=== PATIENT | female | born 1955 | race Caucasian/White ===

== ENCOUNTER 2024-04-02 09:40 | Outpatient (AMB) | payer MEDICARE, BC, SELFPAY ==
--- NOTE | 2024-04-02 09:54 | MHC.PC.OV ---
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 Allergies No Known Allergies Allergy (Verified 04/02/24 09:54) Tobacco use date assessed: 04/02/24 Fall risk assessment: 2 + Falls in past year Last assessed Fall Risk: 04/02/24 Dental Screening Dental Screen Date: 04/02/24 Did you have a dental visit in the last 12 months?: Yes Did you have a dental problem in the last 6 months where you did not have access to dental care?: No Was dental information given to patient?: Patient has dentist HPI HPI Comments History of Present Illness Details The patient is a 68-year-old female history of anxiety arthritis asthma hyperlipidemia presenting for AWV Cardiovascular on rosuvastatin 20 mg daily daily. Blood pressures home are 120s to 130s over 80s. Intolerant amlodipine due to lower extremity edema with this medication. Lisinopril stopped due to chronic cough. Denies chest pain. She previously complained of lightheadedness and underwent stress testing which was normal Chronic cough since 06/07/2022. Had COVID around that time. Stop lisinopril. Trialed omeprazole times 14 days intermittent reflux symptoms without improvement of the cough. She had normal chest x-ray. At her last visit in September she reported there cough is worse when she 1st wakes up in the middle of the night or in the morning she says that originates in the left part of the throat. She denies mirza shortness breath, fevers, chills. She is being followed at [facility] for the possible beginning of ILD. She continues follow-up there. See ENT as well. Recent CT chest with similar finding. Musculoskeletal: Foot pain. Worked up in 2021 for midfoot pain. 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 Sees Dr HuberAjfkqfj-pvtpbrig-TOW. Depression: Remained stable on Lexapro Sees Ophthalmology and a retinal specialist Colonoscopy 10/12/2021 at [facility] Women's Mammogram 05/24/2023 Care team reviewed Medications reconciled 3/3 recall Independent ADLS HRA reviewed without any issues identified (-) fall risk ROS CONSTITUTIONAL: Denies weight loss, fever and chills. HEENT: Denies changes in vision and hearing. RESPIRATORY: Denies SOB and cough. CV: Denies palpitations and CP GI: Denies abdominal pain, nausea, vomiting and diarrhea. : Denies dysuria and urinary frequency. MSK: Denies new myalgia and joint pain. SKIN: Denies rash and pruritus. NEUROLOGICAL: Denies headache PSYCHIATRIC: Denies recent changes in mood. PHYSICAL EXAM: GENERAL: Alert and oriented x 3. NAD EYES: EOMI. Anicteric. HENT: Moist mucous membranes. No scleral icterus. No cervical lymphadenopathy. LUNGS: Clear to auscultation bilaterally. CARDIOVASCULAR: Regular rate and rhythm. No murmur. No JVD. ABDOMEN: Soft, non-tender +bs EXTREMITIES: No edema. Non-tender. SKIN: No rashes or lesions. Warm. NEUROLOGIC: No focal neurological deficits. CN II-XII grossly intact PSYCHIATRIC: Cooperative. Appropriate mood and affect [facility] Medical History H/O mammogram Severe obesity HTN (hypertension) Dizziness Chronic cough Asthma Arthritis Anxiety Surgical History S/P dilatation and curettage History of colonoscopy Family History Father Asthma HTN (hypertension) Social History Housing: House Patient Tobacco Use Status: Never used Tobacco e-Cigarette/Vaping Use: Never Used Second Hand Smoke Exposure: No service: No Current occupational status: employed and retired Cognitive needs: No Hearing needs: No Vision needs: No Questionnaire PHQ-9 Over the last 2 weeks, how often have you been bothered by any of the following problems? 1. Little interest or pleasure in doing things: not at all 2. Feeling down, depressed, or hopeless: not at all 3. Trouble falling or staying asleep, or sleeping too much: not at all 4. Feeling tired or having little energy: several days 5. Poor appetite or overeating: several days 6. Feeling bad about yourself - or that you are a failure or have let yourself or your family down: not at all 7. Trouble concentrating on things, such as reading the newspaper or watching television: not at all 8. Moving or speaking so slowly that other people could have noticed. Or the opposite - being so fidgety or restless that you have been moving around a lot more than usual: not at all 9. Thoughts that you would be better off or of hurting yourself in some way: not at all Total score: 2 Depression Screening Interpretation: Negative (neg) Depression Screening Done: Yes 46212 - PHQ-9 Billing: Yes Source: Developed by Drs. Jean-Pierre Burk, Madeline Finch, Michael Parikh and colleagues, with an educational nael from [employer]. Thrive Questionnaire Date Thrive assessed: 04/02/24 I am a: Patient What is your living situation today?: I have a steady place to live Within the past 12 months, did the food you bought not last and you didn't have the money to get more?: Never true Within the past 12 months, did you worry whether your food would run out before you got money to buy more?: Never true Do you have trouble paying for medicines?: No Do you have trouble getting transportation to medical appointments?: No Do you have trouble paying your heating and electricity bill?: No Do you have trouble taking care of your child, family member or friend?: No Do you have trouble with day-to-day activities such as bathing, preparing meals, shopping, managing finances, etc.?: No Are you currently unemployed and looking for a job?: No Are you interested in more education?: No Please select the resources that you would like help with: None Currently or been in a relationship where the following occur: No concerns reported THRIVE Score: 0 AUDIT C Alcohol Use Questionnaire (AUDIT-C) 1. How often do you have a drink containing alcohol?: 4 or more times a week 2. How many drinks containing alcohol do you have on a typical day when you are drinking?: 3 or 4 3. How often do you have six or more drinks on one occasion?: Monthly Total Score: 7 EDILMA-7 AMB Questionnaire EDILMA-7 Date EDILMA - 7 assessed: 04/02/24 Feeling nervous, anxious, or on edge: 0 = Not at all Not being able to stop or control worryin = Several days Worrying too much about different things: 1 = Several days Trouble relaxin = Not at all Being so restless that it is hard to sit still: 0 = Not at all Becoming easily annoyed or irritable: 0 = Not at all Feeling afraid as if something awful might happen: 1 = Several days Total EDILMA-7 score (0-4 normal; 5-9 mild; 10-14 moderate; 15-21 severe): 3 Source: Developed by Drs. Jean-Pierre Burk, Madeline Finch, Michael Parikh and colleagues, with an educational nael from [employer]. EDILMA-7 Assessment Billing EDILMA-7 Assessment Tool: EDILMA-7 Assessment 48862 Physical exam (Primary Care) Vital Signs: Last Vital Signs Pulse 73 04/02/24 09:57 BP 120/78 04/02/24 09:57 Pulse Ox 98 04/02/24 09:57 Oxygen Delivery Method Room Air 04/02/24 09:57 BMI result Body Mass Index 44.8 Tobacco/Smoking Status: Tobacco use Status Tobacco use date assessed 04/02/24 04/02/24 09:59 Patient Tobacco Use Status Never used Tobacco 04/02/24 09:59 e-Cigarette/Vaping Use Never Used 04/02/24 09:59 PHQ-9: PHQ-9 Score PHQ-9: Total score 2 04/02/24 10:27 Depression Screening Interpretation: Negative (neg) Thrive Assessment: Date of Thrive Assessment Date Thrive assessed 04/02/24 04/02/24 10:08 Currently or been in a relationship where the following occur: No concerns reported Coding Level of Care Code Est Pt Level 3 (88951) Diagnoses Encounter for annual wellness visit (AWV) in Medicare patient Z00.00 Anxiety F41.9 Chronic cough R05.3 Additional Codes EDILMA-7 Assessment Billing - EDILMA-7 Assessment Tool: EDILMA-7 Assessment 41110 ([id number]) Assessment & Plan Assessment & Plan (1) Encounter for annual wellness visit (AWV) in Medicare patient: Code(s): Z00.00 - Encounter for general adult medical examination without abnormal findings Category: Medical Plan: see [facility] (2) Anxiety: Code(s): F41.9 - Anxiety disorder, unspecified Category: Medical Plan: stable (3) Chronic cough: Code(s): R05.3 - Chronic cough Category: Medical Plan: stable. some interval improvement Orders: Orders Lipid Panel 04/02/24 I10 - Essential (primary) hypertension, J45.909 - Unspecified asthma, uncomplicated, F41.9 - Anxiety disorder, unspecified, R05.3 - Chronic cough, M19.90 - Unspecified osteoarthritis, unspecified site TSH reflex Free T4 04/02/24 I10 - Essential (primary) hypertension, J45.909 - Unspecified asthma, uncomplicated, F41.9 - Anxiety disorder, unspecified, R05.3 - Chronic cough, M19.90 - Unspecified osteoarthritis, unspecified site Complete Blood Count Auto Diff 04/02/24 I10 - Essential (primary) hypertension, J45.909 - Unspecified asthma, uncomplicated, F41.9 - Anxiety disorder, unspecified, R05.3 - Chronic cough, M19.90 - Unspecified osteoarthritis, unspecified site Comprehensive Met. Panel 04/02/24 I10 - Essential (primary) hypertension, J45.909 - Unspecified asthma, uncomplicated, F41.9 - Anxiety disorder, unspecified, R05.3 - Chronic cough, M19.90 - Unspecified osteoarthritis, unspecified site Hemoglobin A1c 04/02/24 I10 - Essential (primary) hypertension, J45.909 - Unspecified asthma, uncomplicated, F41.9 - Anxiety disorder, unspecified, R05.3 - Chronic cough, M19.90 - Unspecified osteoarthritis, unspecified site
[2024-04-02 09:57] VITALS: BP 120/78; PULSE 73; O2SAT 98; BMI 44.8
== END 2024-04-02 10:42 | disposition home or self-care (01) ==
PROVIDERS: PCP Internal Medicine; Visit Provider Internal Medicine
DX: Z00.00 Encounter for general adult medical examination without abnormal findings (principal); F41.9 Anxiety disorder, unspecified; R05.3 Chronic cough

== ENCOUNTER → 2024-04-02 09:40 | Outpatient (BNVA) | payer MEDICARE, BC, SELFPAY | PROVIDERS: PCP Internal Medicine; Visit Provider Internal Medicine | DX: Z00.00 Encounter for general adult medical examination without abnormal findings (principal); F41.9 Anxiety disorder, unspecified; R05.3 Chronic cough | CPT/HCPCS: 96127; 99212 ==

== ENCOUNTER 2024-04-02 10:57 | Outpatient (REF) | payer MEDICARE, BC, SELFPAY ==
[2024-04-02 14:44] LABS: MANUAL DIFF FLAG NO
[2024-04-02 14:47] LABS: Basophils Absolute Auto 0.1 X10*3/uL (0.0-0.2); Eosinophils Absolute Auto 0.2 X10*3/uL (0.0-0.4); Eosinophils Percent Auto 3.3 % (0-4); Hemoglobin 15.2 g/dl (12.0-16.0); Imm Gran Abs Auto 0.04 X10*3/uL (0.00-0.03); Imm Gran Pct Auto 0.6 % (0.0-0.4); Lymphocytes Absolute Auto 1.6 X10*3/uL (1.2-4.9); Lymphocytes Percent Auto 23.8 % (20-40); Mean Corpuscular HGB Conc 33.8 g/dl (31.0-35.0); Mean Corpuscular Hemoglobin 33.2 pg (27.0-33.0); Mean Corpuscular Volume 98.3 fL (80.0-98.0); Mean Platelet Volume 10.3 fL (9.4-12.3); Monocytes Absolute Auto 0.4 X10*3/uL (0.1-1.2); Monocytes Percent Auto 6.4 % (2-11); Neutrophils Absolute Auto 4.5 x10*3/uL (2.0-8.3); Neutrophils Percent Auto 64.9 % (45-73); Platelet Count 239 X10*3/uL (160-400); Red Blood Count 4.58 X10*6/uL (4.20-5.50); Red Cell Distribution Width 13.2 % (11.0-16.0); White Blood Count 6.9 X10*3/uL (4.8-10.8)
[2024-04-02 14:58] LABS: Estimated Average Glucose 105 mg/dL; Hemoglobin A1c % 5.3 % (<6.0); Total Hemoglobin (HGBA1C) 3871.7421 umol/L
[2024-04-02 15:15] LABS: Alanine Aminotransferase 57 U/L (0-31); Albumin Level 4.5 g/dL (3.5-5.0); Alkaline Phosphatase 83 U/L (39-117); Anion Gap 13 (12-20); Aspartate Amino Transferase 49 U/L (5-31); Bilirubin Total 0.6 mg/dL (0.0-1.0); Blood Urea Nitrogen 16 mg/dL (9-16); Calcium 9.7 mg/dL (8.4-10.2); Carbon Dioxide 30 mmol/L (22-29); Chloride 102 mmol/L (96-108); Cholesterol 166 mg/dL (<200); Estimated Glomerular Filt Rate > 60; Glucose Random 118 mg/dL (60-115); HDL Cholesterol 57 mg/dL (>40); LDL Cholesterol Calculated 80 mg/dL (<100); Potassium 4.3 mmol/L (3.3-5.1); Sodium 141 mmol/L (135-145); Total Protein 7.3 g/dL (6.5-8.0); Triglycerides 146 mg/dL (<150)
[2024-04-02 15:19] LABS: TSH reflex Free T4 1.52 uIU/mL (0.32-4.0)
== END 2024-04-02 10:58 | disposition home or self-care (01) ==
LOC: HO.WFDLDS 10:57
PROVIDERS: Visit Provider Internal Medicine
DX: Z00.00 Encounter for general adult medical examination without abnormal findings (principal); F41.9 Anxiety disorder, unspecified; R05.3 Chronic cough; I10 Essential (primary) hypertension; J45.909 Unspecified asthma, uncomplicated; M19.90 Unspecified osteoarthritis, unspecified site
CPT/HCPCS: 36415; 80053; 80061; 83036; 84443; 85025; 96127; 99212

== ENCOUNTER 2024-10-22 09:02 | Outpatient (AMB) | payer MEDICARE, BC, SELFPAY ==
--- NOTE | 2024-10-22 09:13 | MHC.PC.OV ---
Vital Signs 10/22/24 09:20 Height 5 ft 2.2 in Weight 251 lb 2 oz BMI 45.6 BP 126/82 Blood Pressure Location Rt brachial Position Sitting Pulse 69 Pulse Source Pulse Oximeter Temp 97.2 F Temp Source Temporal Artery Scan Pulse Oximetry (%) 95 Oxygen Delivery Method Room Air Intake Visit Reasons: FOLLOW UP Intake Note: Ivana presents in the office today for a follow up. Allergies house dust Allergy (Verified 10/22/24 09:16) Congestion mold Allergy (Verified 10/22/24 09:16) Congestion Tobacco use date assessed: 10/22/24 Fall risk assessment: No Falls in past year Last assessed Fall Risk: 10/22/24 Dental Screening Dental Screen Date: 10/22/24 Did you have a dental visit in the last 12 months?: Yes Did you have a dental problem in the last 6 months where you did not have access to dental care?: No Was dental information given to patient?: Patient has dentist HPI HPI Comments History of Present Illness Details The patient is a 69-year-old female history of anxiety, arthritis, asthma, hyperlipidemia presenting for follow up CV: on rosuvastatin 20 mg daily daily, chlorthalidone 12.5mg daily. Intolerant amlodipine due to lower extremity edema with this medication. Lisinopril stopped due to chronic cough. Denies chest pain. She previously complained of lightheadedness and underwent stress testing which was normal Chronic cough since 06/07/2022. This is stable. Had COVID around that time. Stop lisinopril. Trialed omeprazole times 14 days intermittent reflux symptoms without improvement of the cough. She had normal chest x-ray. At her last visit in September she reported there cough is worse when she 1st wakes up in the middle of the night or in the morning she says that originates in the left part of the throat. She denies mirza shortness breath, fevers, chills. She is being followed at [facility] for the possible beginning of ILD. She continues follow-up there. See ENT as well. Recent CT chest with similar finding. Musculoskeletal: She has been having diffuse arthralia and muscle pain. Shoulders, hands, hips. History of foot pain. Worked up in 2021 for midfoot pain. 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 Sees Dr HuberXvpsdrd-itlkjzne-XEA. Hypothyroid-On levothyroxine 50mcg daily. She would like to try off the medication and see if she still needs it. She thinks it might be contributing to joint issues and fatigue Depression: Remained stable on lexapro Sees Ophthalmology and a retinal specialist Colonoscopy 10/12/2021 at [facility] Women[facility] -10 years Mammogram 05/2024-[facility] see HPI PHYSICAL EXAM: GENERAL: Alert and oriented x 3. NAD EYES: EOMI. Anicteric. HENT: Moist mucous membranes. No scleral icterus. No cervical lymphadenopathy. LUNGS: Clear to auscultation bilaterally. CARDIOVASCULAR: Regular rate and rhythm. No murmur. No JVD. ABDOMEN: Soft, non-tender +bs EXTREMITIES: No edema. Non-tender. SKIN: No rashes or lesions. Warm. NEUROLOGIC: No focal neurological deficits. CN II-XII grossly intact PSYCHIATRIC: Cooperative. Appropriate mood and affect [facility] Medical History H/O mammogram Severe obesity HTN (hypertension) Dizziness Chronic cough Asthma Arthritis Anxiety Surgical History S/P dilatation and curettage History of colonoscopy Family History Father Asthma HTN (hypertension) Social History Housing: House Alcohol intake: current Patient Tobacco Use Status: Never used Tobacco e-Cigarette/Vaping Use: Never Used Second Hand Smoke Exposure: No service: No Current occupational status: employed and retired Cognitive needs: No Hearing needs: No Vision needs: No Questionnaire PHQ-9 Over the last 2 weeks, how often have you been bothered by any of the following problems? 1. Little interest or pleasure in doing things: not at all 2. Feeling down, depressed, or hopeless: not at all 3. Trouble falling or staying asleep, or sleeping too much: not at all 4. Feeling tired or having little energy: more than half the days 5. Poor appetite or overeating: more than half the days 6. Feeling bad about yourself - or that you are a failure or have let yourself or your family down: not at all 7. Trouble concentrating on things, such as reading the newspaper or watching television: not at all 8. Moving or speaking so slowly that other people could have noticed. Or the opposite - being so fidgety or restless that you have been moving around a lot more than usual: not at all 9. Thoughts that you would be better off or of hurting yourself in some way: not at all Total score: 4 Depression Screening Interpretation: Negative Depression Screening Done: Yes 87897 - PHQ-9 Billing: Patient declined-do not bill Source: Developed by Drs. Jean-Pierre Burk, Madeline Finch, Michael Parikh and colleagues, with an educational nael from [employer]. Thrive Questionnaire Date Thrive assessed: 10/22/24 I am a: Patient What is your living situation today?: I have a steady place to live Within the past 12 months, did the food you bought not last and you didn't have the money to get more?: Never true Within the past 12 months, did you worry whether your food would run out before you got money to buy more?: Never true Do you have trouble paying for medicines?: No Do you have trouble getting transportation to medical appointments?: No Do you have trouble paying your heating and electricity bill?: No Do you have trouble taking care of your child, family member or friend?: No Do you have trouble with day-to-day activities such as bathing, preparing meals, shopping, managing finances, etc.?: No Are you currently unemployed and looking for a job?: No Are you interested in more education?: No Please select the resources that you would like help with: None Currently or been in a relationship where the following occur: No concerns reported THRIVE Score: 0 AUDIT C Alcohol Use Questionnaire (AUDIT-C) 1. How often do you have a drink containing alcohol?: 4 or more times a week 2. How many drinks containing alcohol do you have on a typical day when you are drinking?: 3 or 4 3. How often do you have six or more drinks on one occasion?: Less than monthly Total Score: 6 Score Reviewed/Action Taken: Yes EDILMA-7 AMB Questionnaire EDILMA-7 Date EDILAM - 7 assessed: 10/22/24 Feeling nervous, anxious, or on edge: 0 = Not at all Not being able to stop or control worryin = Not at all Worrying too much about different things: 0 = Not at all Trouble relaxin = Not at all Being so restless that it is hard to sit still: 0 = Not at all Becoming easily annoyed or irritable: 0 = Not at all Feeling afraid as if something awful might happen: 0 = Not at all Total EDILMA-7 score (0-4 normal; 5-9 mild; 10-14 moderate; 15-21 severe): 0 Source: Developed by Drs. Jean-Pierre Burk, Madeline Finch, Michael Parikh and colleagues, with an educational nael from [employer]. EDILMA-7 Assessment Billing EDILMA-7 Assessment Tool: EDILMA-7 Assessment 56797 Physical exam (Primary Care) Vital Signs: Last Vital Signs Temp 97.2 F 10/22/24 09:20 Pulse 69 10/22/24 09:20 BP 126/82 10/22/24 09:20 Pulse Ox 95 10/22/24 09:20 Oxygen Delivery Method Room Air 10/22/24 09:20 BMI result Body Mass Index 45.6 Tobacco/Smoking Status: Tobacco use Status Tobacco use date assessed 10/22/24 10/22/24 09:24 Patient Tobacco Use Status Never used Tobacco 10/22/24 09:19 e-Cigarette/Vaping Use Never Used 10/22/24 09:19 PHQ-9: PHQ-9 Score PHQ-9: Total score 4 10/22/24 09:40 Depression Screening Interpretation: Negative Thrive Assessment: Date of Thrive Assessment Date Thrive assessed 10/22/24 10/22/24 09:24 Currently or been in a relationship where the following occur: No concerns reported Coding Level of Care Code Est Pt Level 4 (43564) Diagnoses Primary hypertension I10 Hypertension type: primary hypertension Polyarthralgia M25.50 Severe obesity E66.01 Hypothyroidism, unspecified type E03.9 Hypothyroidism type: unspecified Additional Codes EDILMA-7 Assessment Billing - EDILMA-7 Assessment Tool: EDILMA-7 Assessment 71786 ([id number]) Assessment & Plan Assessment & Plan (1) HTN (hypertension): Code(s): I10 - Essential (primary) hypertension Category: Medical Qualifiers: Hypertension type: primary hypertension Qualified Code(s): I10 - Essential (primary) hypertension (2) Polyarthralgia: Code(s): M25.50 - Pain in unspecified joint Category: Medical (3) Severe obesity: Code(s): E66.01 - Morbid (severe) obesity due to excess calories Category: Medical (4) Hypothyroid: Code(s): E03.9 - Hypothyroidism, unspecified Category: Medical Qualifiers: Hypothyroidism type: unspecified Qualified Code(s): E03.9 - Hypothyroidism, unspecified Plan 69 year old for follow up Increased joint and muscle pain, fatigue. Labs ordered She is going to have TSH today then come off the medication and recheck in 3 months Depression is stable HLD-has been stable on crestor Orders: Orders Erythrocyte Sedimentation Rate 10/22/24 F41.9 - Anxiety disorder, unspecified, I10 - Essential (primary) hypertension, M25.50 - Pain in unspecified joint CRP High Sensitivity 10/22/24 F41.9 - Anxiety disorder, unspecified, I10 - Essential (primary) hypertension, M25.50 - Pain in unspecified joint IRON PROFILE 10/22/24 F41.9 - Anxiety disorder, unspecified, I10 - Essential (primary) hypertension, M25.50 - Pain in unspecified joint Hemoglobin A1c 10/22/24 E66.01 - Morbid (severe) obesity due to excess calories, I10 - Essential (primary) hypertension, M25.50 - Pain in unspecified joint TSH reflex Free T4 10/22/24 E03.9 - Hypothyroidism, unspecified UA CC w/rflx Micro + Cult 10/22/24 I10 - Essential (primary) hypertension, M25.50 - Pain in unspecified joint Rheumatoid Factor 10/22/24 M25.50 - Pain in unspecified joint Lyme IgG/IgM w/reflex to WB 10/22/24 F41.9 - Anxiety disorder, unspecified, I10 - Essential (primary) hypertension, M25.50 - Pain in unspecified joint Comprehensive Met. Panel 10/22/24 F41.9 - Anxiety disorder, unspecified, I10 - Essential (primary) hypertension, M25.50 - Pain in unspecified joint Magnesium 10/22/24 F41.9 - Anxiety disorder, unspecified, I10 - Essential (primary) hypertension, M25.50 - Pain in unspecified joint Complete Blood Count Auto Diff 10/22/24 F41.9 - Anxiety disorder, unspecified, I10 - Essential (primary) hypertension, M25.50 - Pain in unspecified joint TSH reflex Free T4 10/22/24 F41.9 - Anxiety disorder, unspecified, I10 - Essential (primary) hypertension, M25.50 - Pain in unspecified joint Thyroid Peroxidase Antibodies 10/22/24 E03.9 - Hypothyroidism, unspecified
[2024-10-22 09:20] VITALS: BP 126/82; PULSE 69; TEMP 36.2; O2SAT 95; BMI 45.6
--- OUTSIDE RECORDS SUMMARY | 2024-10-22 09:45 | XMS_ITS | Patient Health Record ---
Author Organization [facility] Address [address] [place] [phone] Care Team Providers Care Nut Chopper Name Role Phone MD EMPERATRIZ ANTIMONY Primary Care Provider UnavailTOÑO Davis Unavailable [phone] Allergies Allergen (clinical drug ingredient) Drug/Non Drug Allergy documented on EMR Reaction Allergy Type Onset Date Status DUST MOLD (uncoded) Unknown Allergy Active Results Component Value Reference Range Notes [facility] Report Reviewed date:02/29/2024 03:46:54 PM Interpretation:Normal Performing Lab: Notes/Report: [facility] at [facility] Report PATIENT: CORRINA ZIMMERMAN # 53 ADMISSION DATE: 12/07/23 MR#: [id number] LOCATION: [facility] XRAY ROOM#: ATTENDING PHYSICIAN: Toño Dotson DICTATING PHYSICIAN: Jean-Pierre Emery REPORT#: [id number] EXAM SERVICE DATE: 12/07/23 EXAM: Knee Complete (4 views) ===== ====== [id number] EXAMINATION: XR KNEE, bilateral CLINICAL INFORMATION: Pain COMPARISON: Right knee radiograph 08/05/2016 TECHNIQUE: Four views of the bilateral knees. FINDINGS: Right knee: No fracture or dislocation. Moderate degenerative change in the right knee greatest in the medial compartment and patellofemoral compartments with joint space narrowing and bony spurring. There may be a small suprapatellar joint effusion. Alignment is normal. Left knee: Moderate medial compartment degenerative change and mild lateral and patellofemoral degenerative change. Tricompartmental marginal osteophyte formation. There is a small suprapatellar joint effusion. Soft tissues unremarkable. 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 Small bilateral suprapatellar joint effusions. No fracture. DICTATED BY: Jean-Pierre Emery 12/07/23 1045 TRANSCRIBED BY: BUFFY 12/07/23 1045 REPORT STATUS: Signed 12/11/23 SIGNED BY: Jean-Pierre Emery 1855 Report is considered draft until signed, signified by completion of date and time stamp above. [facility] at [facility] Report PATIENT: CORRINA ZIMMERMAN # 54 ADMISSION DATE: 11/18 MR#: [id number] LOCATION: [facility] XRAY ROOM#: ATTENDING PHYSICIAN: Toño Dotson DICTATING PHYSICIAN: Jean-Pierre Emery REPORT#: [id number] EXAM SERVICE DATE: 12/07/23 EXAM: Knee Complete (4 views) [id number] EXAMINATION: XR KNEE, bilateral CLINICAL INFORMATION: Pain COMPARISON: Right knee radiograp h 08/05/2016 TECHNIQUE: Four views of the bi lateral knees. FINDINGS: Right knee: No fract ure or dislocation. Moderate degenerative change in the right knee greatest in the medial compartment and patellofemoral compartments with joint space jae rowing and bony spurring. There may be a small suprapatellar joint effusion. Alignment is normal. Left knee: Moderate medial compartment degenerative change and mild lateral and patellofemoral d egenerative change. Tricompartmental marginal osteophyte formation. There is a small suprapatellar joint effusion. Soft tissues unremarkable. IMPRESSION: Moderate degenerativ e change in the bilateral knees greatest in the medial compartments. Small bilateral suprapatellar joint effusions. No fracture. DICTATED BY: Jean-Pierre Emery 12/07/23 1045 TRANSCRIBED BY: ECHO OLSON 12/07/23 1045 REPORT STATUS: Signed 12/11/23 SIGNED BY: Jean-Pierre Emery 1855 Report is considered draft until signed, signified by completion of date and time stamp above. Reason For Referral No Information Medications Medication SIG (Take, Route, Frequency, Duration) Notes Start Date End Date Status meloxicam 7.5 mg 1 tab(s) orally once a day for 30 days 01/12/2024 Active vitamin B Active Mobic 15 mg 1 tab(s) orally STAR T ONCE MEDROL DOSE PACK IS FINISHED, once a day for 30 day(s) Active Medrol Dosepak 4 mg as directed Active PT for Low Back Pain Rom, Strengthening, modalities, H EP as directed 2-3 times per week for 4-6 weeks Active Mobic 15 mg 1 tab(s) orally once a day for 30 days 01/17/2024 Active cyclobenzaprine 10 mg 1 tab(s) orally at bedtime prn spasm Active rosuvastatin 20 mg 1 tablet orally once a day Active Magnesium Active turmeric Active Problems Problem Type SNOMED Code ICD Code Onset Dates Problem Status W/U Status Risk Notes Problem Pure hypercholesterolemia (665661053) Pure hypercholesterolemia (E78.0) Active confirmed Problem Glaucoma (82360937) Unspecified glaucoma (H40.9) Active confirmed Problem Trochanteric bursiti s of left hip (701440045900928) Trochanteric bursitis, left hip (M70.62) Active confirmed Problem Sprain of left knee (disorder) (23214686035321109) Sprain of other specified parts of left knee, subsequent encounter (S83.8X2D) Active confirmed Encounters Encounter Location Date Provider Diagnosis [facility] [address] [place] [phone] 12/07/2023 TOÑO DOTSON Sprain of ligaments of lumbar spine, initial encounter S33.5XXA [facility] [address] [place], [place] [phone] 01/12/2024 TOÑO DOTSON [facility] [address] [facility] [address] [place], [place] [phone] 01/17/2024 TOÑO DOTSON Assessments Encounter Date Diagnosis (ICD Code) Assessment Notes Treatment Notes Treatment Clinical Notes Section Notes 12/07/2023 Sprain of ligaments of lumbar spine, initial encounter (ICD-10 - S33.5XXA) Lumbar radiculitis. Plan Of Treatment Pending Test Test Name Order Date [facility] Report 04/09/2020 Insurance Providers Payer Name Payer Address Payer Phone Subscriber Number Group Number Insured Name Patient Relationship to Insured Coverage Start Date Coverage End Date MEDICARE [address] [place], [place] [id number] CORRINA ZIMMERMAN Self - patient is the insured [facility] [address] [place], [place] [id number] [id number] CORRINA ZIMMERMAN Self - patient is the insured Medical (General) History Medical History History ICD Code Glaucoma and hypercholesterolemia.
--- OUTSIDE RECORDS SUMMARY | 2024-10-22 09:45 | XMS_ITS ---
Author Organization [facility] Address [address] [place] [phone] Care Team Providers Care Loading Inspector Name Role Phone MD EMPERATRIZ RAVEN Primary Care Provider [facility] DINESH Do Unavailable [phone] Medications Medication SIG (Take, Route, Frequency, Duration) Notes Start Date End Date Status Mobic 15 mg 1 tab(s) orally once a day for 30 days 01/17/2024 Active Encounters Encounter Location Date Provider Diagnosis [facility] [address] [place] [phone] 01/17/2024 DINESH DOTSON Plan Of Treatment Medication Medication Name Sig Start Date Stop Date Notes Mobic 15 mg 1 tab(s) orally once a day for 30 days 024 Progress Notes * CORRINA ZIMMERMAN RDOB:1955 (68 yo F)Acc No.[id number]:01/17/2024 Patient:?CORRINA ZIMMERMAN :1955???Age:68 Y???Sex:Female Address:[facility] [place], [address] * Refills? Start Mobic tablet, 15 mg, orally, 30, 1 tab(s), once a day, 30 days, Refills=3 * true * Date:? Generated for Printi ng/Faxing/eTransmitting on:?10/22/2024 09:44 AM EDT
--- OUTSIDE RECORDS SUMMARY | 2024-10-22 09:45 | XMS_ITS ---
Author Name [facility] Organization Unknown Encounters Encounter Type Encounter Reason Primary Diagnosis Location Date Ambulatory PAIN PAIN [facility] 12/07/2023 Care Team Organization Name Specialty Phone Email Start Date End Da te [facility] Patient answer Primary Care 11/28/2023 [facility] 11/22/2023 [facility] 11/14/2023 03/30/2024
--- OUTSIDE RECORDS SUMMARY | 2024-10-22 09:45 | XMS_ITS ---
Author Organization [facility] Address [address] [place] [phone] Care Team Providers Care Supervisor Ditching Name Role Phone MD RAVEN AWAN Primary Care Provider TOÑO Mills Unavailable [phone] REASON FOR VISIT B/L KNEE Encounters Encounter Location Date Provider Diagnosis [facility] [address] [place] [phone] 01/08/2024 TOÑO DOTSON Plan Of Treatment No Information Progress Notes * CORRINA ZIMMERMAN RDOB:1955 (69 yo F)Acc No.[id number]:01/08/2024 Progress Notes Patient:?CORRINA ZIMMERMAN Provider:?Toño Dotson M.D. :1955???Age:68 Y???Sex:Female D ate:01/08/2024 Address:[address] [place], [place] [phone] Pcp:MD RAVEN AWAN Subjective: * Chief Complaints: * ???1. B/L KNEE. * Medical History:? Objective: * Vitals:? Assessment: Plan: * Treatment: * * Electronic signature of RALPH DOTSON MD on 10/22/2024 at 09:44 AM EDT Sign off status: Pending * Provider:?Toño Dotson M.D. Date: ?01/08/2024 Generated for Printi ng/Radha/Melissaitting on:?10/22/2024 09:44 AM EDT
--- OUTSIDE RECORDS SUMMARY | 2024-10-22 09:45 | XMS_ITS ---
Author Organization [facility] Address [address] [place] [phone] Care Team Providers Care Sap Plant Maintenance Consultant Name Role Phone MD YUSRA AWANAH Primary Care Provider [facility] DINESH Do Unavailable [phone] Medications Medication SIG (Take, Route, Fr equency, Duration) Notes Start Date End Date Status meloxicam 7.5 mg 1 tab(s) orally once a day for 30 days 01/12/2024 Active Encounters Encounter Location Date Provider Diagnosis [facility] [address] [facility] [address] [place], [place] [phone] 01/12/2024 DINESH DOTSON Plan Of Treatment Medication Medication Name Sig Start Date Stop Date Notes meloxicam 7.5 mg 1 tab(s) orally once a day for 30 days Progress Notes * CORRINA ZIMMERMAN RDOB:1955 (68 yo F)Acc No.[id number]:01/12/2024 Patient:?CORRINA ZIMMERMAN :1955???Age:68 Y???Sex:Female Address:[address] , [place], [address] * Refills? Start meloxicam tablet, 7.5 mg, orally, 30, 1 tab(s), once a day, 30 days, Refills=3 * true * Date:? Generated for Printi ng/Faxing/eTransmitting on:?10/22/2024 09:44 AM EDT
== END 2024-10-22 11:52 | disposition home or self-care (01) ==
LOC: HO.HMCFM 09:02
PROVIDERS: PCP Internal Medicine; Visit Provider Internal Medicine
DX: I10 Essential (primary) hypertension (principal); M25.50 Pain in unspecified joint; E66.01 Morbid (severe) obesity due to excess calories; Z68.42 Body mass index [BMI] 45.0-49.9, adult; E03.9 Hypothyroidism, unspecified

== ENCOUNTER → 2024-10-22 09:02 | Outpatient (BNVA) | payer MEDICARE, BC, SELFPAY | PROVIDERS: PCP Internal Medicine; Visit Provider Internal Medicine | DX: Z13.89 Encounter for screening for other disorder (principal) ==

== ENCOUNTER 2024-10-22 09:55 | Outpatient (REF) | payer MEDICARE, BC, SELFPAY ==
[2024-10-22 11:22] LABS: MANUAL DIFF FLAG NO
[2024-10-22 11:34] LABS: Basophils Absolute Auto 0.1 X10*3/uL (0.0-0.2); Basophils Percent Auto 1.2 % (0-2); Eosinophils Absolute Auto 0.3 X10*3/uL (0.0-0.4); Eosinophils Percent Auto 4.1 % (0-4); Hematocrit 44.5 % (37.0-47.0); Hemoglobin 15.4 g/dl (12.0-16.0); Imm Gran Abs Auto 0.03 X10*3/uL (0.00-0.03); Imm Gran Pct Auto 0.5 % (0.0-0.4); Lymphocytes Absolute Auto 1.5 X10*3/uL (1.2-4.9); Lymphocytes Percent Auto 23.1 % (20-40); Mean Corpuscular HGB Conc 34.6 g/dl (31.0-35.0); Mean Corpuscular Hemoglobin 32.6 pg (27.0-33.0); Mean Corpuscular Volume 94.1 fL (80.0-98.0); Mean Platelet Volume 10.2 fL (9.4-12.3); Monocytes Absolute Auto 0.4 X10*3/uL (0.1-1.2); Monocytes Percent Auto 5.8 % (2-11); Neutrophils Absolute Auto 4.3 x10*3/uL (2.0-8.3); Neutrophils Percent Auto 65.3 % (45-73); Platelet Count 249 X10*3/uL (160-400); Red Blood Count 4.73 X10*6/uL (4.20-5.50); Red Cell Distribution Width 13.1 % (11.0-16.0); White Blood Count 6.5 X10*3/uL (4.8-10.8)
[2024-10-22 11:54] LABS: Estimated Average Glucose 111 mg/dL; Hemoglobin A1C 147.9236 umol/L; Hemoglobin A1c % 5.5 % (<6.0); Total Hemoglobin (HGBA1C) 4020.8957 umol/L
[2024-10-22 12:04] LABS: Rheumatoid Factor < 13.0 IU/mL (<15.0)
[2024-10-22 12:20] LABS: Erythrocyte Sedimentation Rate 23 MM/HR (0-20)
[2024-10-22 14:31] LABS: Appearance Urine Clear; Color Urine Yellow; Glucose Urine UA Negative (Negative); Leukocyte Esterase Urine Negative (Negative); Nitrite Urine Negative (Negative); Urine Blood Negative (Negative); Urine Ketones Negative (Negative); Urine Protein Negative (Neg-Trace)
[2024-10-22 14:45] LABS: Anion Gap 14 (12-20)
[2024-10-22 14:53] LABS: Alanine Aminotransferase 47 U/L (0-31); Albumin Level 4.3 g/dL (3.5-5.0); Aspartate Amino Transferase 42 U/L (5-31); Bilirubin Total 0.7 mg/dL (0.0-1.0); Blood Urea Nitrogen 14 mg/dL (9-16); Calcium 9.3 mg/dL (8.4-10.2); Carbon Dioxide 29 mmol/L (22-29); Chloride 100 mmol/L (96-108); Estimated Glomerular Filt Rate > 60; Glucose Random 120 mg/dL (60-115); Iron 127 mcg/dL (30-160); Magnesium 2.1 mg/dL (1.6-2.6); Percent Iron Saturation 48 % (15-50); Potassium 3.9 mmol/L (3.3-5.1); Sodium 139 mmol/L (135-145); Total Iron Binding Capacity 266 mcg/dL (228-428); Total Protein 7.1 g/dL (6.5-8.0); Unsaturated Iron Binding 139 ug/dL
[2024-10-22 15:09] LABS: TSH reflex Free T4 1.82 uIU/mL (0.32-4.0)
[2024-10-22 18:04] LABS: Alkaline Phosphatase 85 U/L (39-117)
[2024-10-23 05:53] LABS: Lyme Abs Screen <0.90 index
[2024-10-23 15:33] LABS: CRP High Sensitivity 6.4 mg/L
[2024-10-23 20:49] LABS: Thyroid Peroxidase Antibodies <1 IU/mL (<9)
== END 2024-10-22 09:56 | disposition home or self-care (01) ==
LOC: HO.WFDLDS 09:55
PROVIDERS: Visit Provider Internal Medicine
DX: I10 Essential (primary) hypertension (principal); M25.50 Pain in unspecified joint; E66.01 Morbid (severe) obesity due to excess calories; Z68.42 Body mass index [BMI] 45.0-49.9, adult; E03.9 Hypothyroidism, unspecified; F41.9 Anxiety disorder, unspecified; F32.A Depression, unspecified; Z79.899 Other long term (current) drug therapy
CPT/HCPCS: 36415; 80053; 81003; 83036; 83540; 83735; 84443; 85025; 85652; 86141; 86376; 86431; 86617; 86618; 96127; 99212

== ENCOUNTER 2025-05-05 14:37 | Outpatient (AMB) | payer MEDICARE, BC, SELFPAY ==
--- NOTE | 2025-05-05 14:52 | A.OFFPC_ITS ---
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 Intolerant amlodipine due to lower extremity edema with this medication. Lisinopril stopped due to chronic cough. Denies chest pain. She previously complained of lightheadedness and underwent stress testing which was normal Chronic cough since 06/07/2022. This is stable. Had COVID around that time. Stop lisinopril. Trialed omeprazole times 14 days intermittent reflux symptoms without improvement of the cough. She had normal chest x-ray. At her last visit in September she reported there cough is worse when she 1st wakes up in the middle of the night or in the morning she says that originates in the left part of the throat. She denies mirza shortness breath, fevers, chills. She is being followed at [facility] for the possible beginning of ILD. She continues follow-up there. See ENT as well. Recent CT chest with similar finding. Musculoskeletal: Improved muscle pain off levothyroxine. She had been having diffuse arthralia and muscle pain. Shoulders, hands, hips. History of foot pain. Worked up in 2021 for midfoot pain. 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 Sees Dr [id number]-[id number]-[id number]. Hypothyroid-Off levothyroxine 50mcg daily. She tells me last TSH at [facility] in 4s. She has been more tired Depression: Remained stable on lexapro 10mg daily. Sees Ophthalmology and a retinal specialist Colonoscopy 10/12/2021 at [facility] -[facility] years Mammogram 05/2024[facility]. She says she has this scheduled ROS see HPI PHYSICAL EXAM: GENERAL: Alert and oriented x 3. NAD EYES: EOMI. Anicteric. HENT: Moist mucous membranes. No scleral icterus. No cervical lymphadenopathy. LUNGS: Clear to auscultation bilaterally. CARDIOVASCULAR: Regular rate and rhythm. No murmur. No JVD. ABDOMEN: Soft, non-tender +bs EXTREMITIES: No edema. Non-tender. SKIN: No rashes or lesions. Warm. NEUROLOGIC: No focal neurological deficits. CN II-XII grossly intact PSYCHIATRIC: Cooperative. Appropriate mood and affect [facility] Medical History H/O mammogram Severe obesity HTN (hypertension) Dizziness Chronic cough Asthma Arthritis Anxiety Surgical History S/P dilatation and curettage History of colonoscopy Family History Father Asthma HTN (hypertension) Social History Housing: House Alcohol intake: current Patient Tobacco Use Status: Never used Tobacco e-Cigarette/Vaping Use: Never Used Second Hand Smoke Exposure: No service: No Current occupational status: employed and retired Cognitive needs: No Hearing needs: No Vision needs: No Questionnaire Thrive Questionnaire Date Thrive assessed: 10/22/24 I am a: Patient What is your living situation today?: I have a steady place to live Within the past 12 months, did the food you bought not last and you didn't have the money to get more?: Never true Within the past 12 months, did you worry whether your food would run out before you got money to buy more?: Never true Do you have trouble paying for medicines?: No Do you have trouble getting transportation to medical appointments?: No Do you have trouble paying your heating and electricity bill?: No Do you have trouble taking care of your child, family member or friend?: No Do you have trouble with day-to-day activities such as bathing, preparing meals, shopping, managing finances, etc.?: No Are you currently unemployed and looking for a job?: No Are you interested in more education?: No Please select the resources that you would like help with: None Currently or been in a relationship where the following occur: No concerns reported THRIVE Score: 0 AUDIT C Alcohol Use Questionnaire (AUDIT-C) 1. How often do you have a drink containing alcohol?: 4 or more times a week 2. How many drinks containing alcohol do you have on a typical day when you are drinking?: 3 or 4 3. How often do you have six or more drinks on one occasion?: Less than monthly Total Score: 6 EDILMA-7 AMB Questionnaire EDILMA-7 Date EDILMA - 7 assessed: 10/22/24 Source: Developed by Drs. Jean-Pierre Bruk, Madeline Finch, Michael Parikh and colleagues, with an educational nael from [employer]. Physical exam (Primary Care) Vital Signs: Last Vital Signs Temp 98 F 05/05/25 14:53 Pulse 84 05/05/25 14:53 Resp 16 05/05/25 14:53 BP 132/78 05/05/25 14:53 Pulse Ox 95 05/05/25 14:53 Oxygen Delivery Method Room Air 05/05/25 14:53 BMI result Body Mass Index 46.7 Tobacco/Smoking Status: Tobacco use Status Tobacco use date assessed 05/05/25 05/05/25 14:55 Patient Tobacco Use Status Never used Tobacco 05/05/25 14:55 e-Cigarette/Vaping Use Never Used 05/05/25 14:55 Thrive Assessment: Date of Thrive Assessment Date Thrive assessed 10/22/24 05/05/25 14:55 Currently or been in a relationship where the following occur: No concerns reported Coding Level of Care Code Est Pt Prev Care >65y(86626) Diagnoses Physical exam Z00.00 Mild intermittent asthma without complication J45.20 Asthma severity: mild Asthma persistence: intermittent Asthma complication type: uncomplicated Primary hypertension I10 Hypertension type: primary hypertension Hypothyroidism, unspecified type E03.9 Hypothyroidism type: unspecified Anxiety F41.9 Assessment & Plan Assessment & Plan (1) Physical exam: Code(s): Z00.00 - Encounter for general adult medical examination without abnormal findings (2) Asthma: Code(s): J45.909 - Unspecified asthma, uncomplicated Category: Medical Qualifiers: Asthma severity: mild Asthma persistence: intermittent Asthma complication type: uncomplicated Qualified Code(s): J45.20 - Mild intermittent asthma, uncomplicated (3) HTN (hypertension): Code(s): I10 - Essential (primary) hypertension Category: Medical Qualifiers: Hypertension type: primary hypertension Qualified Code(s): I10 - Essential (primary) hypertension (4) Hypothyroid: Code(s): E03.9 - Hypothyroidism, unspecified Category: Medical Qualifiers: Hypothyroidism type: unspecified Qualified Code(s): E03.9 - Hypothyroidism, unspecified (5) Anxiety: Code(s): F41.9 - Anxiety disorder, unspecified Category: Medical Plan 69 year old female for CPE Interval history reviewed Preventive measures for age discussed HTN well controll on current medication HLD-continue statin. Efforts toward weight loss Orders: Orders Lipid Panel 05/05/25 E03.9 - Hypothyroidism, unspecified, I10 - Essential (primary) hypertension, M19.90 - Unspecified osteoarthritis, unspecified site, R05.3 - Chronic cough, R53.83 - Other fatigue MM tomosynthesis screening BI 05/05/25 Z12.31 - Encounter for screening mammogram for malignant neoplasm of breast Complete Blood Count Auto Diff 05/05/25 E03.9 - Hypothyroidism, unspecified, I10 - Essential (primary) hypertension, M19.90 - Unspecified osteoarthritis, unspecified site, R05.3 - Chronic cough, R53.83 - Other fatigue Comprehensive Met. Panel 05/05/25 E03.9 - Hypothyroidism, unspecified, I10 - Essential (primary) hypertension, M19.90 - Unspecified osteoarthritis, unspecified site, R05.3 - Chronic cough, R53.83 - Other fatigue Magnesium 05/05/25 E03.9 - Hypothyroidism, unspecified, I10 - Essential (primary) hypertension, M19.90 - Unspecified osteoarthritis, unspecified site, R05.3 - Chronic cough, R53.83 - Other fatigue TSH reflex Free T4 05/05/25 E03.9 - Hypothyroidism, unspecified, I10 - Essential (primary) hypertension, M19.90 - Unspecified osteoarthritis, unspecified site, R05.3 - Chronic cough, R53.83 - Other fatigue Medications: New omeprazole 20 mg PO DAILY 90 caps 3RF Refilled chlorthalidone 12.5 mg (1/2 x 25 mg) PO DAILY 45 tabs 3RF
[2025-05-05 14:53] VITALS: BP 132/78; PULSE 84; RESP 16; TEMP 36.6; O2SAT 95; BMI 46.7
--- OUTSIDE RECORDS SUMMARY | 2025-05-06 04:48 | XMS_ITS | Encounter Summary ---
Author Organization [facility] Address [address] [place], [place] [address] Phone Care Team Providers Care Armature Connector Name Role Phone Dudley Kong MD Primary Care Provider +- [phone] Ana Abreu MD Primary Care Provider [phone] Encounter Details Date Type Department Care Team (Late st Contact Info) Description 03/24/2022 Procedure Pass [facility] - [facility], Main [place] [address] [place] [address] Social History Tobacco Use Types Packs/Day Years Used Date Smoking Tobacco: Never Smokeless Tobacco: Never Alcohol Use Standard Drinks/Week Comments Yes 10 (1 standard drink = 0.6 oz pu re alcohol) Comments No Sex and Gender Information Value Date Recorded Sex Assigned at Female 11/29/2019 2:54 PM EDT Legal Sex Female 2:47 PM EDT Gender Identity Female 11/29/2019 2:54 PM EDT Sexual Orientation Straight 11/29/2019 2: 54 PM EDT documented as of this encounter Plan of Treatment Not on file documented as of this encounter Visit Diagnoses Not on filedocumented in this encounter Additional Health Concerns Assessment Noted Time PHQ-2 Depression Total Score: 0 08/18/19 22 12:44 PM EST documented as of this encounter Care Teams Armature Connector Relationship Specialty Start Date End Date Dudley Kong MD [address] [place] [address] [address] [place] [address] PCP - General Internal Medicine 11/29/19 04/20/22 Ana Abreu MD [address] [place] [address] PCP - General Internal Medicine 04/21/22 documented as of this encounter Additional Source Comments The information contained in this document represents components of the legal health record. It is not the complete legal health record.[facility]
--- OUTSIDE RECORDS SUMMARY | 2025-05-06 04:48 | XMS_ITS | Encounter Summary ---
Author Organization [facility] Address [address] [facility] [address] [place], [place] [address] Phone Care Team Providers Care Settlement Clerk Name Role Phone Dudley Kong MD Primary Care Provider +- [phone] Ana Abreu MD Primary Care Provider + [phone] Encounter Details Date Type Department Care Team (Late st Contact Info) Description 02/18/2020 Procedure Pass [facility], Mammography, [facility] Imaging Department [address] [place] [address] Social History Tobacco Use Types Packs/Day Years [...] Noted Time PHQ-2 Depression Total Score: 0 01/27/20 20 1:14 PM EDT documented as of this encounter Care Teams Settlement Clerk Relationship Specialty Start Date End Date Dudley Kong MD [address] [facility] [address] [place] [address] PCP - General Internal Medicine 11/29/19 04/20/22 Ana Abreu MD [address] [place] [address] PCP - General Internal Medicine 04/21/22 documented as of this encounter Additional Source Comments The information contained in this document represents components of the legal health record. It is not the complete legal health record.[facility]
--- OUTSIDE RECORDS SUMMARY | 2025-05-06 04:49 | XMS_ITS | Encounter Summary ---
Author Organization [facility] Address [address] [place] [address] Phone Care Team Providers Care Manager Reading Name Role Phone Dudley Kong MD Primary Care Provider +- [phone] Ana Abreu MD Primary Care Provider [phone] Encounter Details Date Type Department Care Team (Late st Contact Info) Description 02/21/[address] [facility] Periop [address] [place] [address] Social History Tobacco Use Types Packs/Day Years [...] documented as of this encounter Care Teams Manager Reading Relationship Specialty Start Date End Date Dudley Kong MD [address] [place] [address] [address] [place] [address] PCP - General Internal Medicine 11/29/19 04/20/22 Ana Abreu MD [address] [place] [address] PCP - General Internal Medicine 04/21/22 documented as of this encounter Additional Source Comments The information contained in this document represents components of the legal health record. It is not the complete legal health record.[facility]
--- OUTSIDE RECORDS SUMMARY | 2025-05-06 04:49 | XMS_ITS | Encounter Summary ---
Author Organization [facility] Address [address] [facility] [address] [place] [id number] Phone Care Team Providers Care Home Health Speech Therapist Name Role Phone Dudley Kong MD Primary Care Provider +- [phone] Ana Abreu MD Primary Care Provider + [phone] Encounter Details Date Type Department Care Team (Late st Contact Info) Description 07/06/2021 Procedure Pass [facility]' Business Services Representative Center [address] [facility] [place] [id number] Social History Tobacco Use Types Packs/Day Years [...] documented as of this encounter Care Teams Home Health Speech Therapist Relationship Specialty Start Date End Date Dudley Kong MD [address] [facility] [address] [place] [address] PCP - General Internal Medicine 11/29/19 04/20/22 Ana Abreu MD [address] [place] [address] PCP - General Internal Medicine 04/21/22 documented as of this encounter Additional Source Comments The information contained in this document represents components of the legal health record. It is not the complete legal health record.[facility]
--- OUTSIDE RECORDS SUMMARY | 2025-05-06 04:50 | XMS_ITS | Encounter Summary ---
Author Organization [facility] Address [address] [place] [address] Phone Care Team Providers Care Local Company Intermodal Truck Driver Name Role Phone Dudley Kong MD Primary Care Provider + [phone] Ana Abreu MD Primary Care Provider + [phone] Encounter Details Date Type Department Care Team (Late st Contact Info) Description 01/24/2020 Documentation [facility] Gynecology Resident [address] [place] [address] [place], [place] [address] [place] [address] [email or web address] Social History Tobacco Use Types Packs/Day Years Used Date Smoking Tobacco: Never Assessed Comments Unknown Sex and Gender Information Value Date Recorded Sex Assigned at Female 11/29/2019 2:54 PM EDT Legal Sex Female 2:47 PM EDT Gender Identity Female 11/29/2019 2:54 PM EDT Sexual Orientation Straight 11/29/2019 2: 54 PM EDT documented as of this encounter Plan of Treatment Not on file documented as of this encounter Visit Diagnoses Not on filedocumented in this encounter Care Teams Local Company Intermodal Truck Driver Relationship Specialty Start Date End Date Dudley Kong MD [address] [place] [address] [address] [place] [address] PCP - General Internal Medicine 11/29/19 04/20/22 Ana Abreu MD [address] [place] [address] PCP - General Internal Medicine 04/21/22 documented as of this encounter Additional Source Comments The information contained in this document represents components of the legal health record. It is not the complete legal health record.[facility]
--- OUTSIDE RECORDS SUMMARY | 2025-05-06 04:50 | XMS_ITS | Encounter Summary ---
Author Organization [facility] Address [address] [facility] [address] [place], [place] [phone] Phone Care Team Providers Care Lens Coater Name Role Phone Dudley Kong MD Primary Care Provider +- [phone] Ana Abreu MD Primary Care Provider + [phone] Encounter Details Date Type Department Care Team (Late st Contact Info) Description 10/12/2021 Procedure Pass [facility] Waste Management Specialist Center [address] [place] [address] Social History Tobacco Use Types Packs/Day Years [...] documented as of this encounter Care Teams Lens Coater Relationship Specialty Start Date End Date Dudley Kong MD [address] [facility] [address] [place] [address] PCP - General Internal Medicine 11/29/19 04/20/22 Ana Abreu MD [address] [place] [address] PCP - General Internal Medicine 04/21/22 documented as of this encounter Additional Source Comments The information contained in this document represents components of the legal health record. It is not the complete legal health record.[facility]
--- OUTSIDE RECORDS SUMMARY | 2025-05-06 04:50 | XMS_ITS | Encounter Summary ---
Author Organization [facility] Address [address] [facility] [address] [place] [address] Phone Care Team Providers Care Post Exchange Manager Name Role Phone Dudley Kong MD Primary Care Provider +- [phone] Ana Abreu MD Primary Care Provider [phone] Encounter Details Date Type Department Care Team (Late st Contact Info) Description 04/28/[address] [facility] [address] [facility] [place] [address] Dudlye Kong MD [address] [facility] [address] [place] [address] Social History Tobacco Use Types Packs/Day Years [...] documented as of this encounter Care Teams Post Exchange Manager Relationship Specialty Start Date End Date Dudley Kong MD [address] [place] [address] [address] [place] [address] PCP - General Internal Medicine 11/29/19 04/20/22 Ana Abreu MD [address] [place] [address] PCP - General Internal Medicine 04/21/22 documented as of this encounter Additional Source Comments The information contained in this document represents components of the legal health record. It is not the complete legal health record.[facility]
--- OUTSIDE RECORDS SUMMARY | 2025-05-06 04:51 | XMS_ITS | Encounter Summary ---
Author Organization [facility] Address [address] [facility] [address] [place] [address] Phone Care Team Providers Care Discharge Planner Name Role Phone Ana Abreu MD Primary Care Provider [phone] Encounter Details Date Type Department Care Team (Late st Contact Info) Description 01/18/2023 Procedure Pass [facility]' Sales Agent [employer] [facility] [address] [facility] [address] [place] [id number] Social History Tobacco Use Types Packs/Day Years Used Date Smoking Tobacco: Never Smokeless Tobacco: Never Alcohol Use Standard Drinks/Week Comments Yes 10 (1 standard drink = 0.6 oz pu re alcohol) Education Answer Date Recorded Are you interested in more education? Not on raphael e 10/14/2022 Are you concerned about learning? Not on file 10/14/2022 No 10/14/2022 No 10/14/2022 Digital Access Answer Date Recorded No 11/15/2022 No 11/15/2022 Reliable internet access at home? Not on file 11/15/2022 Device with a working camera? Not on file Comments No Sex and Gender Information Value [...] documented as of this encounter Care Teams Discharge Planner Relationship Specialty Start Date End Date Ana Abreu MD PCP - General Internal Medicine 04/21/22 documented as of this encounter Additional Source Comments The information contained in this document represents components of the legal health record. It is not the complete legal health record.[facility]
--- OUTSIDE RECORDS SUMMARY | 2025-05-06 04:51 | XMS_ITS | Encounter Summary ---
Author Organization [facility] Address [address] [place] [address] Phone Care Team Providers Care Plywood Layup Line Core Layer Name Role Phone Ana Abreu MD Primary Care Provider [phone] [phone] Encounter Details Date Type Department Care Team (Late st Contact Info) Description 03/21/2023 Procedure Pass [facility] [address] [place] [address] Social History Tobacco Use Types Packs/Day Years [...] Noted Time PHQ-2 Depression Total Score: 0 03/21/20 23 1:47 PM EDT documented as of this encounter Care Teams Plywood Layup Line Core Layer Relationship Specialty Start Date End Date Ana Abreu MD PCP - General Internal Medicine 04/21/22 documented as of this encounter Additional Source Comments The information contained in this document represents components of the legal health record. It is not the complete legal health record.[facility]
--- OUTSIDE RECORDS SUMMARY | 2025-05-06 04:52 | XMS_ITS | Clinical Summary ---
Author Organization [facility] Address [address] [place] [address] Phone Care Team Providers Care Racecourse Barrier Attendant Name Role Phone Ana Abreu MD Primary Care Provider [phone] Allergies Active Allergy Reactions Criticality Noted Date Comments House Dust 01/18/2023 Mold Extracts 01/18/2023 Medications latanoprost (XALATAN) 0.005 % ophthalmic solution Place 1 drop into each eye nightly at bedtime. Active albuterol sulfate (PROAIR RESPICLICK) 90 mcg/actuation AePB Inhale 2 puffs into the lungs as needed. Active rosuvastatin (CRESTOR) 20 MG tablet Take 20 mg by mouth daily. Active escitalopram oxalate (LEXAPRO) 10 MG tablet 1 Active psyllium husk 0.4 gram Cap Take by mouth. Ac tive Bifidobacterium infantis (ALIGN ORAL) Take by mouth. Activ e triamcinolone acetonide 0.1 % cream Apply topically 2 (two) times a day for 14 days. As needed for itch on the back 45 g 1 2 Active desonide (DESOWEN) 0.05 % ointment Apply BID x 1 week 15 g 3 Active ALPRAZolam (XANAX) 0.5 MG tablet Take 0.5 mg by mouth daily as needed for anxiety. Active chlorthalidone (HYGROTON) 25 MG tablet See Instructions, 12.5mg oral once daily, # 90 tablet, Refills 3, Tot. Refills 3, Maintenance, 08/28/23 15:10:00 EDT, Instructions Replace Required Details, Route to Pharmacy Electronically, [id number], Partial fill upon patient reque... 3 Active levothyroxine (SYNTHROID, LEVOTHROID) 50 MCG tablet Take 50 mcg by mouth daily. Active levothyroxine (SYNTHROID) 500 mcg injection 2 Active meloxicam (MOBIC) 15 MG tablet Take 1 tablet by mouth every morning. 4 Active ketoconazole 2 % cream Apply topically daily. 60 g 1 4 Active Active Problems Problem Noted Date Diagnosed Date History of diverticulitis 04/28/2021 At average risk for colon cancer 04/28/2021 Snoring 04/28/2021 PONV (postoperative nausea and vomiting) 021 Complex endometrial hyperplasia without atypia Social History Tobacco Use Types Packs/Day Years [...] Orientation Straight 11/29/2019 2: 54 PM EDT Last Filed Vital Signs Vital Sign Reading Time Taken Comments Blood Pressure 154/74 03/21/2023 1:47 PM EDT Pulse 75 03/21/2023 1:47 PM EDT Temperature 35.6 C (96 F) 03/21/2023 1:47 PM EDT Respiratory Rate 16 03/21/2023 1:47 PM EDT Oxygen Saturation 97% 03/21/2023 1:47 PM EDT Inhaled Oxygen Concentration - - Weight 107 kg (236 lb) 03/21/2023 1:47 PM EDT Height 162.6 cm (5' 4 ) 03/21/2023 1:47 PM EDT Body Mass Index 40.51 03/21/2023 1:47 PM EDT Plan of Treatment Health Maintenance Due Date Last Done Comments Adult Td,Tdap Booster 1955 LIPID PANEL 1955 TSH LEVEL 1955 HEPATITIS C SCREENING 1972 COLOGUARD 09/23/1999 FIT TEST 09/23/1999 FOBT 09/23/1999 SIGMOIDOSCOPY 09/23/1999 VIRTUAL COLONOSCOPY 09/23/1999 PNEUMOCOCCAL VACCINES (50+ years) (1 of 1 - PCV) 2004 RSV VACCINE (1 - Risk 50-74 years 1-dose series) 2004 ZOSTER VACCINES (2 of 3) 05/23/2015 03/28/2015 OSTEOPOROSIS SCREENING INITIAL (ONE-TIME) 09/23/2019 POTASSIUM LEVEL 07/08/2021 07/08/2020 MAMMOGRAM 02/19/2022 02/20/2020, 06/20, 05/09/2017, Additional history exists DEPRESSION SCREENING 03/21/2024 03/21/2023 INFLUENZA VACCINE (#1) 2025 04/13/2022, 2020 COVID-19 VACCINE ( - season) 2025 05/05/2021, 08/29/2020, 08/07/2020 COLONOSCOPY 10/13/2031 10/12/2021 COLORECTAL CANCER SCREENING 10/13/2031 SMOKING STATUS SCREENING (Once After 26 Yrs) Completed 04/30/2024 HEPATITIS A VACCINES Aged Out No long er eligible based on patient's age to complete this topic HIB VACCINES Aged Out No longer eligi ble based on patient's age to complete this topic IPV VACCINES Aged Out No longer eligi ble based on patient's age to complete this topic MENINGOCOCCAL VACCINES (ACWY) Aged Out No longer eligible based on patient's age to complete this topic MENINGOCOCCAL VACCINES (B) Aged Out N o longer eligible based on patient's age to complete this topic Medical Devices Not on file Procedures Procedure Name Priority Date/Time Associated Diagnosis Comments ENDOSCOPY, COLON 10/12/2021 8:04 AM EDT COMPREHENSIVE METABOLIC PANEL (CMP) Routine 07/08/2020 2:17 PM EST Endometrial hyperplasia BI MAMMOGRAM SCREENING WITH TOMOSYNTHESIS WITH CAD (BILATERAL) Urgent/patient waiting 02/20/2020 11:23 AM EDT Breast cancer screening from Last 3 Months or Most Recently Relevant to Health Maintenance Results * ENDOSCOPY, COLON (10/12/2021 8:04 AM EDT) 10/12/2021 8:04 AM EDT Narrative Transcriptions Erasmo Porras MD - 10/12/2021 8:04 AM EDT 850 Gastroenterology Patient Name: Ivana Suarez Procedure Date: 10/12/2021 8:04 AM Date of : 1955 Age: 66 Room: 03 Gender: Female Note Status: Finalized Attending MD: ERASMO PORRAS MD Procedure: Colonoscopy Indications: Screening for colorectal malignant neoplasm, Incidental - Follow-up of diverticulitis Patient Profile: This is a 66 year old female. Refer to note in patient chart for documentation of history and physical. Providers: ERASMO PORRAS MD, MEG BACON RN Referring MD: ERASMO PORRAS MD (Referring MD) Medicines: Monitored Anesthesia Care Complications: No immediate complications. Estimated blood loss: None. Procedure: Pre-Anesthesia Assessment: - Monitored anesthesia care under the supervision of an anesthesiologist was determined to be medically necessary for this procedure based on age 65 or older, increased risk of airway obstruction (oral, facial, neck, jaw abnormalities) and morbid obesity. After informed consent was obtained, the scope was passed under direct vision. Throughout the procedure, the patient's blood pressure, pulse, and oxygen saturations were monitored continuously. The pediatric Colonoscope was introduced through the anus and advanced to the terminal ileum, with identification of the appendiceal orifice and IC valve. The colonoscopy was performed without difficulty. The patient tolerated the procedure well. The quality of the bowel preparation was good. The quality of the bowel preparation was evaluated using the BBPS ([place] Bowel Preparation Scale) with scores of: Right Colon = 3, Transverse Colon = 3 and Left Colon = 3 (entire mucosa seen well with no residual staining, small fragments of stool or opaque liquid). The total BBPS score equals 9. Imaging was performed using white light and narrow band imaging to visualize the mucosa. The bowel preparation used was GoLYTELY via split dose instruction. Findings: The perianal and digital rectal examinations were normal. Diverticula were found in the entire colon, left colon >> right colon. No other significant abnormalities were identified in a careful examination of the remainder of the colon. No polyps or masses noted. The retroflexed view of the distal rectum and anal verge was normal and showed no anal or rectal abnormalities. Impression: - Diverticulosis in the entire examined colon, in the left colon and in the right colon. - The distal rectum and anal verge are normal on retroflexion view. - No specimens collected. Recommendation: - The patient will be observed post-procedure, until all discharge criteria are met. - Discharge patient to home (ambulatory). - Repeat colonoscopy in 10 years for screening purposes. - A copy of the finalized procedure report was provided to the patient prior to discharge. - Patient has a contact number available for emergencies. The signs and symptoms of potential delayed complications were discussed with the patient. Return to normal activities tomorrow. Written discharge instructions were provided to the patient. Attending Participation: I personally performed the entire procedure. ERASMO PORRAS MD 10/12/2021 8:40:47 AM This report has been signed electronically. Number of Addenda: 0 Note Initiated On: 10/12/2021 8:04 AM us Erasmo Porras MD GI PROCEDURE ORDERABLES Final Re sult * (ABNORMAL) Comprehensive metabolic panel (07/08/2020 2:17 PM EST) SODIUM 138 136 - 145 mmol/L [facility] LIC# [id number] POTASSIUM 4.5 3.4 - 5.1 mmol/L [facility] LIC# [id number] CHLORIDE 104 98 - 107 mmol/L [facility] LIC# [id number] CO2 23 22 - 31 mmol/L [facility] LIC# [id number] BUN 16 6 - 23 mg/dL [facility] LIC# [id number] CREATININE 0.88 0.50 - 1.20 mg/dL [facility] LIC# [id number] GLUCOSE 101(H) 70 - 100 mg/dL [facility] LIC# [id number] ALBUMIN 4.3 3.5 - 5.2 g/dL [facility] LIC# [id number] TOTAL PROTEIN 6.5 6.4 - 8.3 g/dL [facility] LIC# [id number] CALCIUM 9.4 8.8 - 10.7 mg/dL [facility] LIC# [id number] ALKALINE PHOSPHATASE 92 35 - 104 U/L [facility] LIC# [id number] TOTAL BILIRUBIN 0.3 0.2 - 1.2 mg/dL [facility] LIC# [id number] AST 26 <33 U/L [facility] LIC# [id number] ALT 29 <34 U/L [facility] LIC# [id number] GLOBULIN 2.2 1.9 - 4.1 g/dL [facility] LIC# [id number] EGFR 69 >59 mL/min/1.7 3m2 [facility] LIC# [id number] Comment:Estimated glomerular filtration rate calculated using the CKD-EPI equation. ANION GAP 11 7 - 17 mmol/L [facility] LIC# [id number] Blood 07/08/2020 2:17 PM EST 07/08/2020 2:[address] Valerio MD LAB BLOOD BKR ORDERABLES Fin al Result [facility] LIC# [id number] [address] [place] [address] * BI MAMMOGRAM SCREENING WITH TOMOSYNTHESIS WITH CAD (BILATERAL) (02/20/2020 11:23 AM EDT) Anatomical Region Laterality Modality Breast Left, Breast Right, Breast Bilateral Bila teral Mammography Other 02/20/2020 11:3 9 AM EDT Impressions 02/20/2020 11:42 AM EDT No mammographic evidence of malignancy. Recommend routine screening. The patient was sent a letter with the results of the exam and follow-up recommendation. OVERALL ASSESSMENT -- BI-RADS 1 NEGATIVE Narrative 02/20/2020 11:42 AM EDT Reason for exam: Screening. No new breast complaints. TECHNIQUE: Digital Mammography and tomosynthesis were used to obtain images. Computer Aided Detection was used to aid in interpretation and volumetric breast density assessment may have been used as an aid in evaluating breast density. COMPARISON: Comparison is made with relevant prior imaging in PACS. Breast Composition: scattered areas of fibroglandular density. FINDINGS: Bilateral Breasts: No significant masses, suspicious calcifications, or other abnormalities are seen. Procedure Note Darlene Matta MD - 02/20/2020 Reason for exam: Screening. No new breast complaints. TECHNIQUE: Digital Mammography and tomosynthesis were used to obtain images. ComputerAided Detection was used to aid in interpretation and volumetric breastdensity assessment may have been used as an aid in evaluating breastdensity. COMPARISON: Comparison is made with relevant prior imaging in PACS. Breast Composition: scattered areas of fibroglandular density. FINDINGS: Bilateral Breasts: No significant masses, suspicious calcifications, or other abnormalitiesare seen. IMPRESSION: No mammographic evidence of malignancy. Recommend routine screening. The patient was sent a letter with the results of the exam and follow-uprecommendation. OVERALL ASSESSMENT -- BI-RADS [address] Valerio MD [facility] MG EXAMS Final Result from Last 3 Months or Most Recently Relevant to Health Maintenance Insurance MEDICARE PART A & B Member Subscriber Plan / Payer (Ef fective 2019-Present) Name:Ivana Suarez Member ID:[id number] Relation to Subscriber:Self Name:Ivana Suarez Subscriber ID:[id number] Payer ID:[id number] Group ID:Not on file Type:Medicare Address: [employer] [address] [place] [id number] [facility] O MEDICARE SUPPLEMENT MEDICARE PART A & B [facility] MEDICARE SUPPLEMENT MEDICARE PART A & B Member Subscriber Plan / Payer (Ef fective 2019-Present) Name:Ivana Suarez Member ID:[id number] Relation to Subscriber:Self Name:Ivana Suarez Subscriber ID:[id number] Payer ID:[id number] Group ID:Not on file Type:Medicare Address: [facility] [employer] [facility] [address] [place] [phone] [facility] SU[facility] MEDICARE PART A & B [facility] MEDICARE SUPPLEMENT MEDICARE PART A & [place] [address] [place] [address] O MEDICARE SUPPLEMENT MEDICARE SUPPLEMENT MEDICARE PART A & B [employer] O MEDICARE SUPPLEMENT MEDICARE PART A & B [id number] MEDICARE [place]PPLE[place] [place] [address] MEDICARE SUPPLEMENT MEDICARE PART A & B [facility] MEDICARE SUPPLEMENT Member Subscriber Plan / Payer (Ef fective 2019-Present) Name:Ivana Suarez Relation to Subscriber:Self Name:Ivana Suarez Payer ID:[id number] (NAIC) Group ID:[id number] Type:O Address: [facility] [address] [place] [id number] Care Teams Racecourse Barrier Attendant Relationship Specialty Start Date End Date Ana Abreu MD PCP - General Internal Medicine 04/21/22 Additional Source Comments The information contained in this document represents components of the legal health record. It is not the complete legal health record.[facility]
--- OUTSIDE RECORDS SUMMARY | 2025-05-06 04:52 | XMS_ITS | Encounter Summary ---
Author Organization [facility] Address [address] [place] [address] Phone Care Team Providers Care Finger Waver Name Role Phone Dudley Kong MD Primary Care Provider [phone]- [phone] Ana Abreu MD Primary Care Provider [phone] Encounter Details Date Type Department Care Team (Late st Contact Info) Description 07/17/2020 Procedure Pass [facility] Periop [address] [place] [address] Social History Tobacco Use Types Packs/Day Years [...] documented as of this encounter Care Teams Finger Waver Relationship Specialty Start Date End Date Dudley Kong MD [address] [place] [address] [address] [place] [address] PCP - General Internal Medicine 11/29/19 04/20/22 Ana Abreu MD [address] [place] [address] PCP - General Internal Medicine 04/21/22 documented as of this encounter Additional Source Comments The information contained in this document represents components of the legal health record. It is not the complete legal health record.[facility]
== END 2025-05-05 15:31 | disposition home or self-care (01) ==
LOC: HO.HMCFM 14:38
PROVIDERS: PCP Internal Medicine; Visit Provider Internal Medicine
DX: Z00.00 Encounter for general adult medical examination without abnormal findings (principal); J45.20 Mild intermittent asthma, uncomplicated; I10 Essential (primary) hypertension; E03.9 Hypothyroidism, unspecified; F41.9 Anxiety disorder, unspecified

== ENCOUNTER → 2025-05-05 14:37 | Outpatient (BNVA) | payer MEDICARE, BC, SELFPAY | PROVIDERS: PCP Internal Medicine; Visit Provider Internal Medicine | DX: Z00.00 Encounter for general adult medical examination without abnormal findings (principal); I10 Essential (primary) hypertension; E03.9 Hypothyroidism, unspecified; R53.83 Other fatigue; R05.3 Chronic cough; M19.90 Unspecified osteoarthritis, unspecified site; J45.20 Mild intermittent asthma, uncomplicated; E78.5 Hyperlipidemia, unspecified; F41.9 Anxiety disorder, unspecified; Z86.19 Personal history of other infectious and parasitic diseases | CPT/HCPCS: 99397 ==

== ENCOUNTER 2025-05-21 12:16 | Outpatient (REF) | payer MEDICARE, BC, SELFPAY ==
--- OUTSIDE RECORDS SUMMARY | 2023-12-04 06:00 | XMS_ITS ---
Author Organization [facility] Address [address] [place] [phone] Care Team Providers Care Recyclable Materials Collector Name Role Phone MD RAVEN AWAN Primary Care Provider DINESH Mills Unavailable [phone] REASON FOR VISIT B/L KNEE W/XRAYS *PATIENT POP* Encounters Encounter Location Date Provider Diagnosis [facility] [address] [id number] 12/04/2023 DINESH DOTSON Plan Of Treatment No Information Progress Notes * ELSIE CORRINA RDOB:1955 (69 yo F)Acc No.[id number]:12/04/2023 Progress Notes Patient: CORRINA HEADLEY Filiberto Provider: Jannette Dotson M.D. :1955 A ge:68 Y S ex:Female Date:12/04/2023 Address:[address] [place] [address] [id number] Pcp:MD RAVEN AWAN Subjective: * Chief Complaints: * 1 . B/L KNEE W/XRAYS *PATIENT POP*. * Medical History: Objective: * Vitals: Assessment: Plan: * Treatment: * * Electronic signature of RALPH DOTSON MD on 05/21/2025 at 02:33 PM EST Sign off status: Pending * Provider: Jannette Dotson M.D. Date: 0 12/04/2023 Generated for Nila barker/Radha/Sylvester on: 1 07/22/2024 02:33 PM EST
--- OUTSIDE RECORDS SUMMARY | 2023-12-07 06:20 | XMS_ITS ---
Author Organization [facility] Address [address] [place] [phone] Care Team Providers Care Vending Route Driver Name Role Phone MD EMPERATRIZ RAVEN Primary Care Provider DINESH Mills Unavailable [phone] Allergies Allergen (clinical drug ingredient) Drug/Non Drug Allergy documented on EMR Reaction Allergy Type Onset Date Status DUST MOLD (uncoded) Unknown Allergy Active REASON FOR VISIT B/L KNEE W/XRAYS *PATIENT POP* Medications Medication SIG (Take, Route, Frequency, Duration) Notes Start Date End Date Status vitamin B Active Mobic 15 mg 1 tab(s) orally STAR T ONCE MEDROL DOSE PACK IS FINISHED, once a day; Duration: 30 day(s) Active Medrol Dosepak 4 mg as directed Active PT for Low Back Pain Rom, Strengthening, modalities, H EP as directed 2-3 times per week; Duration: 4-6 weeks Active rosuvastatin 20 mg 1 tablet orally once a day Active cyclobenzaprine 10 mg 1 tab(s) orally at bedtime prn spasm Active Magnesium Active turmeric Active Encounters Encounter Location Date Provider Diagnosis [facility] [address] [place] [phone] 12/07/2023 DINESH DOTSON Sprain of ligaments of lumbar spine, initial encounter S33.5XXA Assessments Encounter Date Diagnosis (ICD Code) Assessment Notes Treatment Notes Treatment Clinical Notes Section Notes 12/07/2023 Sprain of ligaments of lumbar spine, initial encounter (ICD-10 - S33.5XXA) Lumbar radiculitis. Plan Of Treatment Medication Medication Name Sig Start Date Stop Date Notes Mobic 15 mg 1 tab(s) orally STAR T ONCE MEDROL DOSE PACK IS FINISHED, once a day; Duration: 30 day(s) Medrol Dosepak 4 mg as directed PT for Low Back Pain Rom, Strengthening, modalities, H EP as directed 2-3 times per week; Duration: 4-6 weeks cyclobenzaprine 10 mg 1 tab(s) orally at bedtime prn spasm Progress Notes * CORRINA ZIMMERMAN RDOB:1955 (69 yo F)Acc No.[id number]:12/07/2023 Progress Notes Patient: CORRINA HEADLEY Provider: Jannette Dotson M.D. :1955 A ge:68 Y S ex:Female Date:12/07/2023 Address:[address] [place], [place] [phone] Pcp:MD RAVEN AWAN Subjective: * Chief Complaints: * 1 . B/L KNEE W/XRAYS *PATIENT POP*. * HPI: G eneral: Fainted with a fall and now with posterior thigh pain on the left. She states a blood pressure medication caused her to faint. She now notes that the pain in the posterior thigh has been worsening. * ROS: E NDOCRINOLOGY: no p olydipsia. n o p olyuria. n o d iabetes. E NT: no h earing loss. n o c hange in voice. ? H EMATOLOGY/LYMPH: no e asy bruising. b loodclots/DVT/PE no. B lood Clots No. e asy bleeding no. n o b leeding problem. n o a nemia.? N EUROLOGY: no h eadache. n o t ingling/numbness. n o s eizures. n o i nsomnia. n o d izziness. n o g ait abnormality. ? O PTHAMOLOGY: Glasses/contact lenses Y es. P SYCHOLOGY: no d epression. n o a nxiety. C ARDIOVASCULAR: no c hest pain. n o i rregular heart beat. n o?high blood pressure. n o l eg/ankle swelling. G ASTROINTESTINAL: no n ausea/vomiting. n o s tomach ulcer/reflux.?no d iarrhea. n o b lood in stool. I NTEGUMENT: no r ashes/sores. n o s kin cancer. n o i tching/burning. C ONSTITUTIONAL: no w eight gain. n o f ever. n o c hronic fatigue. w eight loss/gain y es. s ymptoms or current known medical problems w eight change. M USCULOSKELETAL: no j oint swelling. j oint pain y es. n o j oint stiffness. b ack pain yes. R ESPIRATORY: no s hortness of breath. n o t rouble breathing.?no w heezing/asthma. n o c hronic cough. * Medical History: G laucoma and hypercholesterolemia.. * Family History: F ather: diagnosed with Heart Disease. Cancer, Prostate, Arthritis. * Social History: S moking: no. Recreational drug use: no. Exercise: no. Alcohol use? If so how often?: yes, Daily. Employment: no, Retired. Patient notes daily caffeine use. * Medications: T aking vitamin B , Taking Magnesium , Taking turmeric , Taking rosuvastatin 20 mg tablet 1 tablet orally once a day , Taking PT for Low Back Pain Rom, Strengthening, modalities, H EP as directed 2-3 times per week , Taking Medrol Dosepak 4 mg tablet as directed , Taking Mobic 15 mg tablet 1 tab(s) orally START ONCE MEDROL DOSE PACK IS FINISHED, once a day , Taking cyclobenzaprine 10 mg tablet 1 tab(s) orally at bedtime prn spasm * Allergies: D UST MOLD. Objective: * Vitals: * Examination: L ower back: The patient is alert and oriented times three respirations are normal affect and mood are appropriate.. Inspection: no deformities noted, no erythmema. Palpation: t chalino to left paraspinal palpation, tender to right paraspinal palpation. Straight leg raising test: exacerbates low back. Motor System V/ V bilaterally. Sensory exam: intact all dermatomes. gait normal, heel-toe. Babinski sign negative. Range of Motion pain in rightward lateral bend, pain in leftward lateral bend, pain in extension limiting range of motion, pain at end flexion. ? Assessment: * Assessment: 1. S prain of ligaments of lumbar spine, initial encounter - S33.5XXA (Primary) ? Lumbar radiculitis. Plan: * Treatment: * * Electronic signature of RALPH DOTSON MD on 05/21/2025 at 02:33 PM EST Sign off status: Pending * Provider: Jannetet Dotson M.D. Date: 0 12/07/2023 Generated for Nila barker/Radha/Melissaitting on: 1 07/22/2024 02:33 PM EST History and Physical Notes * HPI (History of Present Illness) Category Sub-Category Detail Notes Category Not es General Fainted with a fall and now with posterior thigh pain on the left. She states a blood pressure medication caused her to faint. She now notes that the pain in the posterior thigh has been worsening. Examination Category Sub-Category Detail Notes Category Not es Lower back Straight leg raising test: exacerbates lo w back Motor System V/ V bilaterally Sensory exam: intact all dermatome s gait normal, heel-toe Inspection: no deformities noted , no erythmema Palpation: tender to left ibis emerson palpation, tender to right paraspinal palpation Babinski sign negative Range of Motion pain in rightward la teral bend, pain in leftward lateral bend, pain in extension limiting range of motion, pain at end flexion The patient is alert and princess ented times three respirations are normal affect and mood are appropriate.
[2025-05-21 13:58] LABS: MANUAL DIFF FLAG NO
[2025-05-21 14:07] LABS: Hematocrit 45.1 % (37.0-47.0); Hemoglobin 15.3 g/dl (12.0-16.0); Imm Gran Abs Auto 0.03 X10*3/uL (0.00-0.03); Imm Gran Pct Auto 0.5 % (0.0-0.4); Lymphocytes Absolute Auto 1.6 X10*3/uL (1.2-4.9); Mean Corpuscular HGB Conc 33.9 g/dl (31.0-35.0); Mean Corpuscular Hemoglobin 32.8 pg (27.0-33.0); Mean Corpuscular Volume 96.6 fL (80.0-98.0); NRBC Abs Auto 0.000 X10*3/uL (0.0-0.012); NRBC Pct Auto 0.0 /100WBC (0.0-0.2); Platelet Count 227 X10*3/uL (160-400); Red Blood Count 4.67 X10*6/uL (4.20-5.50); White Blood Count 6.4 X10*3/uL (4.8-10.8)
--- OUTSIDE RECORDS SUMMARY | 2025-05-21 14:33 | XMS_ITS ---
Author Name [facility] Organization Unknown Encounters Encounter Type Encounter Reason Primary Diagnosis Location Date Ambulatory PAIN PAIN [facility] 12/07/2023 Care Team Organization Name Specialty Phone Email Start Date End Da te [facility] Patient answer Primary Care 11/28/2023 [facility] 11/22/2023 [facility] 11/14/2023 03/30/2024
--- OUTSIDE RECORDS SUMMARY | 2025-05-21 14:33 | XMS_ITS | Encounter Summary ---
Author Organization [facility] Address [address] [place] [address] Phone Care Team Providers Care Yard Driver Name Role Phone Dudley Kong MD Primary Care Provider [phone] Ana Abreu MD Primary Care Provider [phone] Encounter Details Date Type Department Care Team (Late st Contact Info) Description 01/24/[address] [facility] OBGYN Gynecology Resident [address] [place] [address] [place], [place] [address] [place] [address] [email or web address] Social History Tobacco Use Types Packs/Day Years Used Date Smoking Tobacco: Never Assessed Comments Unknown Sex and Gender Information Value Date Recorded Sex Assigned at Female 11/29/2019 2:54 PM EDT Legal Sex Female 2:47 PM EDT Gender Identity Female 11/29/2019 2:54 PM EDT Sexual Orientation Straight 11/29/2019 2: 54 PM EDT documented as of this encounter Plan of Treatment Upcoming Encounters Date Type Department Care Team (Late st Contact Info) Description 05/27/2026 10:15 AM EST Office Visit [facility] - Dermatology [address] [address] Sue Rider MD [address] [place] [address] [email or web address] documented as of this encounter Visit Diagnoses Not on filedocumented in this encounter Care Teams Yard Driver Relationship Specialty Start Date End Date Dudley Kong MD [address] [place] [address] [address] [place] [address] PCP - General Internal Medicine 11/29/19 04/20/22 Ana Abreu MD [address] [place] [address] [address] [place] [address] PCP - General Internal Medicine 04/21/22 documented as of this encounter Additional Source Comments The information contained in this document represents components of the legal health record. It is not the complete legal health record.[facility]
--- OUTSIDE RECORDS SUMMARY | 2025-05-21 14:33 | XMS_ITS | Encounter Summary ---
Author Organization [facility] Address [address] [place], [place] [address] Phone Care Team Providers Care Lace Inspector Name Role Phone Dudley Kong MD Primary Care Provider [phone] Ana Abreu MD Primary Care Provider [phone] Encounter Details Date Type Department Care Team (Late st Contact Info) Description 02/21/[address] [facility] Periop [address] [place] [address] Social History Tobacco Use Types Packs/Day Years [...] Description 05/27/2026 10:15 AM EST Office Visit [facility] [place] - [address] [address] Sue Rider MD [address] [place] [address] [email or web address] documented as of this encounter Visit Diagnoses Not on filedocumented in this encounter Additional Health Concerns Assessment Noted Time PHQ-2 Depression Total Score: 0 01/27/20 20 1:14 PM EDT documented as of this encounter Care Teams Lace Inspector Relationship Specialty Start Date End Date Dudley Kong MD [address] [place] [address] PCP - General Internal Medicine 11/29/19 04/20/22 Ana Abreu MD [address] [place] [address] PCP - General Internal Medicine 04/21/22 documented as of this encounter Additional Source Comments The information contained in this document represents components of the legal health record. It is not the complete legal health record.[facility]
--- OUTSIDE RECORDS SUMMARY | 2025-05-21 14:33 | XMS_ITS | Encounter Summary ---
Author Organization [facility] Address [address] [place] [address] Phone Care Team Providers Care Medical Office Asst Name Role Phone Dudley Kong MD Primary Care Provider [phone] Ana Abreu MD Primary Care Provider [phone] Encounter Details Date Type Department Care Team (Late st Contact Info) Description 03/24/2022 Procedure Pass [facility] - [place], Main [address] [place] [address] Social History Tobacco Use Types Packs/Day Years [...] Description 05/27/2026 10:15 AM EST Office Visit [facility] - [address] [address] Sue Rider MD [address] [place] [address] [email or web address] documented as of this encounter Visit Diagnoses Not on filedocumented in this encounter Additional Health Concerns Assessment Noted Time PHQ-2 Depression Total Score: 0 08/18/19 12:44 PM EST documented as of this encounter Care Teams Medical Office Asst Relationship Specialty Start Date End Date Dudley Kong MD [address] [place] [address] PCP - General Internal Medicine 11/29/19 04/20/22 Ana Abreu MD [address] [place] [address] PCP - General Internal Medicine 04/21/22 documented as of this encounter Additional Source Comments The information contained in this document represents components of the legal health record. It is not the complete legal health record.[facility]
--- OUTSIDE RECORDS SUMMARY | 2025-05-21 14:33 | XMS_ITS | Encounter Summary ---
Author Organization [facility] Address [address] [employer] [facility] [address] [place], [place] [address] Phone Care Team Providers Care Service Desk Analyst Name Role Phone Dudley Kong MD Primary Care Provider [phone] Ana Abreu MD Primary Care Provider [phone] Encounter Details Date Type Department Care Team (Late st Contact Info) Description 07/06/2021 Procedure Pass [facility] [address] [facility] [address] [facility] [place] [address] Social History Tobacco Use Types Packs/Day Years [...] Description 05/27/2026 10:15 AM EST Office Visit [facility] - Dermatology [address] [address] Sue Rider MD [address] [place] [address] [email or web address] documented as of this encounter Visit Diagnoses Not on filedocumented in this encounter Additional Health Concerns Assessment Noted Time PHQ-2 Depression Total Score: 0 01/27/20 20 1:14 PM EDT documented as of this encounter Care Teams Service Desk Analyst Relationship Specialty Start Date End Date Dudley Kong MD [address] [place] [address] PCP - General Internal Medicine 11/29/19 04/20/22 Ana Abreu MD [address] [place] [address] PCP - General Internal Medicine 04/21/22 documented as of this encounter Additional Source Comments The information contained in this document represents components of the legal health record. It is not the complete legal health record.[facility]
--- OUTSIDE RECORDS SUMMARY | 2025-05-21 14:33 | XMS_ITS | Encounter Summary ---
Author Organization [facility] Address [address] [place] [address] Phone Care Team Providers Care Children'S Author Name Role Phone Dudley Kong MD Primary Care Provider [phone] Ana Abreu MD Primary Care Provider [phone] Encounter Details Date Type Department Care Team (Late st Contact Info) Description 10/12/2021 Procedure Pass [facility] [address] [place] [address] Social History Tobacco Use Types Packs/Day Years [...] Description 05/27/2026 10:15 AM EST Office Visit [facility] - Dermatology - [address] [address] Sue Rider MD [address] [place] [address] [email or web address] documented as of this encounter Visit Diagnoses Not on filedocumented in this encounter Additional Health Concerns Assessment Noted Time PHQ-2 Depression Total Score: 0 08/18/19 22 12:44 PM EST documented as of this encounter Care Teams Children'S Author Relationship Specialty Start Date End Date Dudley Kong MD [address] [place] [address] PCP - General Internal Medicine 11/29/19 04/20/22 Ana Abreu MD [address] [place] [address] PCP - General Internal Medicine 04/21/22 documented as of this encounter Additional Source Comments The information contained in this document represents components of the legal health record. It is not the complete legal health record.[facility]
--- OUTSIDE RECORDS SUMMARY | 2025-05-21 14:33 | XMS_ITS | Encounter Summary ---
Author Organization [facility] Address [address] [place] [address] Phone Care Team Providers Care Shank Skinner Name Role Phone Dudley Kong MD Primary Care Provider [phone] Ana Abreu MD Primary Care Provider [phone] Encounter Details Date Type Department Care Team (Late st Contact Info) Description 02/18/2020 Procedure Pass [facility] [place], Mammography, [facility] Imaging Department [address] [place] [address] Social History Tobacco Use Types Packs/Day Years [...] Description 05/27/2026 10:15 AM EST Office Visit [facility] - [facility] - [address] [id number] Sue Rider MD [address] [place] [address] [email or web address] documented as of this encounter Visit Diagnoses Not on filedocumented in this encounter Additional Health Concerns Assessment Noted Time PHQ-2 Depression Total Score: 0 01/27/20 20 1:14 PM EDT documented as of this encounter Care Teams Shank Skinner Relationship Specialty Start Date End Date Dudley Kong MD [address] [place] [address] PCP - General Internal Medicine 11/29/19 04/20/22 Ana Abreu MD [address] [place] [address] PCP - General Internal Medicine 04/21/22 documented as of this encounter Additional Source Comments The information contained in this document represents components of the legal health record. It is not the complete legal health record.[facility]
--- OUTSIDE RECORDS SUMMARY | 2025-05-21 14:34 | XMS_ITS | Encounter Summary ---
Author Organization [facility] Address [address] [place] [address] Phone Care Team Providers Care Real Estate Rental Agent Name Role Phone Ana Abreu MD Primary Care Provider [phone] Encounter Details Date Type Department Care Team (Late st Contact Info) Description 03/21/2023 Procedure Pass [facility] Radiology [address] [place] [address] Social History Tobacco Use Types Packs/Day Years [...] Description 05/27/2026 10:15 AM EST Office Visit [facility] - Dermatology [address] [address] Sue Rider MD [address] [place] [address] [email or web address] documented as of this encounter Visit Diagnoses Not on filedocumented in this encounter Additional Health Concerns Assessment Noted Time PHQ-2 Depression Total Score: 0 03/21/20 23 1:47 PM EDT documented as of this encounter Care Teams Real Estate Rental Agent Relationship Specialty Start Date End Date Ana Abreu MD PCP - General Internal Medicine 04/21/22 documented as of this encounter Additional Source Comments The information contained in this document represents components of the legal health record. It is not the complete legal health record.[facility]
--- OUTSIDE RECORDS SUMMARY | 2025-05-21 14:34 | XMS_ITS | Patient Health Record ---
Author Organization [facility] Address [address] [place] [id number] Care Team Providers Care Marketing Writer Name Role Phone MD YUSRA AWANAH Primary Care Provider DINESH Mills Unavailable [phone] Allergies Allergen (clinical drug ingredient) Drug/Non Drug Allergy documented on EMR Reaction Allergy Type Onset Date Status DUST MOLD (uncoded) Unknown Allergy Active Reason For Referral No Information Medications Medication SIG (Take, Route, Frequency, Duration) Notes Start Date End Date Status meloxicam 7.5 mg 1 tab(s) orally once a day; Duration: 30 days 01/12/2024 Active vitamin B Active Mobic 15 mg 1 tab(s) orally STAR T ONCE MEDROL DOSE PACK IS FINISHED, once a day; Duration: 30 day(s) Active Medrol Dosepak 4 mg as directed Active PT for Low Back Pain Rom, Strengthening, modalities, H EP as directed 2-3 times per week; Duration: 4-6 weeks Active Mobic 15 mg 1 tab(s) orally once a day; Duration: 30 days 01/17/2024 Active cyclobenzaprine 10 mg 1 tab(s) orally at bedtime prn spasm Active rosuvastatin 20 mg 1 tablet orally once a day Active Magnesium Active turmeric Active Problems Problem Type SNOMED Code ICD Code Onset Dates Problem Status W/U Status Risk Notes Problem Pure hypercholesterolemia (218083330) Pure hypercholesterolemia (E78.0) Active confirmed Problem Glaucoma (29016980) Unspecified glaucoma (H40.9) Active confirmed Problem Trochanteric bursiti s of left hip (674337155665307) Trochanteric bursitis, left hip (M70.62) Active confirmed Problem Sprain of left knee (disorder) (70568536851611807) Sprain of other specified parts of left knee, subsequent encounter (S83.8X2D) Active confirmed Plan Of Treatment Pending Test Test Name Order Date [facility] Report 04/09/2020 Insurance Providers Payer Name Payer Address Payer Phone Subscriber Number Group Number Insured Name Patient Relationship to Insured Coverage Start Date Coverage End Date MEDICARE [address] [facility] [place] [id number] CORRINA ZIMMERMAN Self - patient is the insured [facility] [address] [place], [place] [phone] [id number] CORRINA ZIMMERMAN Self - patient is the insured Medical (General) History Medical History History ICD Code Glaucoma and hypercholesterolemia.
--- OUTSIDE RECORDS SUMMARY | 2025-05-21 14:34 | XMS_ITS | Encounter Summary ---
Author Organization [facility] Address [address] [address] Phone Care Team Providers Care Art Educator Name Role Phone Dudley Kong MD Primary Care Provider [phone] Ana Abreu MD Primary Care Provider [phone] Encounter Details Date Type Department Care Team (Late st Contact Info) Description 04/28/2021 Telephone [facility] Specialties [address] [address] Dudley Kong MD [address] [place] [address] [address] [place] [address] Social History Tobacco Use Types Packs/Day Years [...] Description 05/27/2026 10:15 AM EST Office Visit [address] [address] Sue Rider MD [address] [place] [address] [email or web address] documented as of this encounter Visit Diagnoses Not on filedocumented in this encounter Additional Health Concerns Assessment Noted Time PHQ-2 Depression Total Score: 0 01/27/20 20 1:14 PM EDT documented as of this encounter Care Teams Art Educator Relationship Specialty Start Date End Date Dudley Kong MD [address] [place] [address] PCP - General Internal Medicine 11/29/19 04/20/22 Ana Abreu MD [address] [place] [address] PCP - General Internal Medicine 04/21/22 documented as of this encounter Additional Source Comments The information contained in this document represents components of the legal health record. It is not the complete legal health record.[facility]
--- OUTSIDE RECORDS SUMMARY | 2025-05-21 14:34 | XMS_ITS | Clinical Summary ---
Author Organization [facility] Address [address] [place] [address] Phone Care Team Providers Care Rubber Press Operator Name Role Phone Ana Abreu MD Primary Care Provider Allergies Active Allergy Reactions Criticality Noted Date [...] Replace Required Details, Route to Pharmacy Electronically, [id number], Partial fill upon patient reque... 3 Active [...] 03/21/2023 1:47 PM EDT Plan of Treatment Upcoming Encounters Date Type Department Care Team (Late st Contact Info) Description 05/27/2026 10:15 AM EST Office Visit [facility] - Dermatology [facility] [address] [place] [address] Sue Rider MD [address] [place] [address] [email or web address] Health Maintenance Due Date Last Done Comments [...] VACCINE (#1) 2025 04/13/2022, 2020 COVID-19 VACCINE (4 - season) 2025 05/05/2021, 08/29/2020, 08/07/2020 COLONOSCOPY [...] bowel preparation was evaluated using the BBPS ([place] Bowel Preparation Scale) with scores of: Right [...] EST) SODIUM 138 136 - 145 mmol/L [facility] LIC# [id number] POTASSIUM 4.5 3.4 - 5.1 mmol/L [facility] LIC# [id number] CHLORIDE 104 98 - 107 mmol/L [facility] LIC# [id number] CO2 23 22 - 31 mmol/L [facility] LIC# [id number] BUN 16 6 - 23 mg/dL [facility] LIC# [id number] CREATININE 0.88 0.50 - 1.20 mg/dL [facility] LIC# [id number] GLUCOSE 101(H) 70 - 100 mg/dL [facility] LIC# [id number] ALBUMIN 4.3 3.5 - 5.2 g/dL [facility] LIC# [id number] TOTAL PROTEIN 6.5 6.4 - 8.3 g/dL [facility] LIC# [id number] CALCIUM 9.4 8.8 - 10.7 mg/dL [facility] LIC# [id number] ALKALINE PHOSPHATASE 92 35 - 104 U/L [facility] LIC# [id number] TOTAL BILIRUBIN 0.3 0.2 - 1.2 mg/dL [facility] LIC# [id number] AST 26 <33 U/L [facility] LIC# [id number] ALT 29 <34 U/L [facility] LIC# [id number] GLOBULIN 2.2 1.9 - 4.1 g/dL [facility] LIC# [id number] EGFR 69 >59 mL/min/1.7 3m2 [facility] LIC# [id number] Comment:Estimated glomerular filtration rate calculated using the CKD-EPI equation. ANION GAP 11 7 - 17 mmol/L [facility] LIC# [id number] Blood 07/08/2020 2:17 PM EST 07/08/2020 2:[address] Valerio MD LAB BLOOD BKR ORDERABLES Fin al Result [facility] LIC# [id number] [address] [place] [address] * BI MAMMOGRAM SCREENING WITH TOMOSYNTHESIS WITH [...] or other abnormalities are seen. Procedure Note AmDarlene varela MD - 02/20/2020 Reason for exam: Screening. [...] follow-uprecommendation. OVERALL ASSESSMENT -- BI-RADS [address] Valerio MD IMG MG EXAMS Final Result from Last 3 Months or Most Recently Relevant to Health Maintenance Insurance MEDICARE PART A & B [employer] O MEDICARE SUPPLEMENT MEDICARE PART A & B [employer] [place] [address] [place] [address] MEDICARE SUPPLEMENT MEDICARE PART A & B [facility] MEDICARE SUPPLEMENT MEDICARE PART A & B [employer] [facility] MEDICARE SUPPLEMENT MEDICARE PART A & B [facility] MEDICARE SUPPLEMENT MEDICARE PART A & B Member Subscriber Plan / Payer (Ef fective 2019-) Name:Ivana Suarez Member ID:[id number] Relation to Subscriber:Self Name:Ivana Suarez Subscriber ID:[id number] Payer ID:[id number] Group ID:Not on file Type:Medicare Address: [employer] [address] [place], [place] [id number] [place] [address] MEDICARE SUPPLEMENT MEDICARE PART A & B [facility] MEDICARE SUPPLEMENT MEDICARE PART A & B [facility] MEDICARE SUPPLEMENT MEDICARE PART A & B [facility] OOS MEDICARE SUPPLEMENT Care Teams Rubber Press Operator Relationship Specialty Start Date End Date Ana Abreu MD PCP - General Internal Medicine 04/21/22 Additional Source Comments The information contained in this document represents components of the legal health record. It is not the complete legal health record.[facility]
--- OUTSIDE RECORDS SUMMARY | 2025-05-21 14:34 | XMS_ITS | Encounter Summary ---
Author Organization [facility] Address [address] [place] [address] Phone Care Team Providers Care Television Tube Inspector Name Role Phone Dudley Kong MD Primary Care Provider [phone] Ana Abreu MD Primary Care Provider [phone] Encounter Details Date Type Department Care Team (Late st Contact Info) Description 07/17/2020 Procedure Pass [facility] Periop [address] [place] [address] Social History Tobacco Use Types Packs/Day Years [...] Description 05/27/2026 10:15 AM EST Office Visit [facility] [place] - [address] [address] Sue Rider MD [address] [place] [address] [email or web address] documented as of this encounter Visit Diagnoses Not on filedocumented in this encounter Additional Health Concerns Assessment Noted Time PHQ-2 Depression Total Score: 0 01/27/20 20 1:14 PM EDT documented as of this encounter Care Teams Television Tube Inspector Relationship Specialty Start Date End Date Dudley Kong MD [address] [place] [phone] PCP - General Internal Medicine 11/29/19 04/20/22 Ana Abreu MD [address] [place] [address] PCP - General Internal Medicine 04/21/22 documented as of this encounter Additional Source Comments The information contained in this document represents components of the legal health record. It is not the complete legal health record.[facility]
--- OUTSIDE RECORDS SUMMARY | 2025-05-21 14:34 | XMS_ITS | Encounter Summary ---
Author Organization [facility] Address [address] [place] [address] Phone Care Team Providers Care Optical Glass Inspector Name Role Phone Ana Abreu MD Primary Care Provider Encounter Details Date Type Department Care Team (Late st Contact Info) Description 01/18/2023 Procedure Pass [facility] [address] [facility] [address] [place] [id number] Social History Tobacco Use Types Packs/Day Years [...] Description 05/27/2026 10:15 AM EST Office Visit [facility] - Dermatology - [place] [address] [place] [address] Sue Rider MD [address] [place] [address] [email or web address] documented as of this encounter Visit Diagnoses Not on filedocumented in this encounter Additional Health Concerns Assessment Noted Time PHQ-2 Depression Total Score: 0 08/18/19 12:44 PM EST documented as of this encounter Care Teams Optical Glass Inspector Relationship Specialty Start Date End Date Ana Abreu MD PCP - General Internal Medicine 04/21/22 documented as of this encounter Additional Source Comments The information contained in this document represents components of the legal health record. It is not the complete legal health record.[facility]
[2025-05-21 15:02] LABS: Alanine Aminotransferase 64 U/L (0-31); Albumin Level 4.4 g/dL (3.5-5.0); Alkaline Phosphatase 108 U/L (39-117); Anion Gap 12 (12-20); Aspartate Amino Transferase 69 U/L (5-31); Blood Urea Nitrogen 13 mg/dL (9-16); Calcium 9.3 mg/dL (8.4-10.2); Carbon Dioxide 30 mmol/L (22-29); Chloride 100 mmol/L (96-108); Cholesterol 157 mg/dL (<200); Estimated Glomerular Filt Rate > 60; HDL Cholesterol 50 mg/dL (>40); Magnesium 2.3 mg/dL (1.6-2.6); Potassium 3.9 mmol/L (3.3-5.1); Sodium 138 mmol/L (135-145); Total Protein 7.2 g/dL (6.5-8.0); Triglycerides 163 mg/dL (<150)
== END 2025-05-21 12:17 | disposition home or self-care (01) ==
LOC: HO.WFDLDS 12:16
PROVIDERS: Visit Provider Internal Medicine
DX: I10 Essential (primary) hypertension (principal); M25.50 Pain in unspecified joint; F41.9 Anxiety disorder, unspecified; E03.9 Hypothyroidism, unspecified; M19.90 Unspecified osteoarthritis, unspecified site; R05.3 Chronic cough; R53.83 Other fatigue
CPT/HCPCS: 36415; 80053; 80061; 83735; 84443; 85025